=== PATIENT | male | born 1960 | race Caucasian/White ===

== ENCOUNTER 2017-02-06 20:56 | Emergency (ER) | payer OTHER ==
[2017-02-06 21:05] VITALS: PULSE 80; RESP 18; TEMP 98.4
[2017-02-06] MEDS ORDERED: methylPREDNISolone SOD SUCCI 125 MG/2 ML VIAL IM ONE (21:48)
--- NOTE | 2017-02-06 21:48 | ED ---
General Adult HPI - General Chief complaint: Headache Stated complaint: Headache x3 days Time Seen by Provider: 02/06/17 21:25 Source: patient Mode of arrival: ambulatory Limitations: no limitations - History of Present Illness Initial comments: 56-year-old male patient sent to emergency department today for evaluation of pain to his left posterior scalp. Patient states that he has had this pain for the last 3 days. Patient states that he has bumps on the back of the left side of his head near the hairline. Patient states that the pain is radiating up into the left side of his head near his ear. He states he did initially have some itching to the area. The patient states that he did take some Benadryl and ibuprofen at onset of symptoms which did improve the pain. Patient states this did help his symptoms somewhat. Patient states he did also take ibuprofen for this which improved symptoms as well. The patient states that it seemed to be getting a little worse today so came in for evaluation. Patient was concerned that he was possibly bit by an insect. Patient denies any recent fever, chills , shortness breath, chest pain, abdominal pain, nausea, vomiting, diarrhea, constipation, back pain, numbness, tingling, weakness, hematuria, headache, visual changes, or any other complaints. - Related Data Home Medications Medication Instructions Recorded Confirmed Ibuprofen [Advil] 600 mg PO Q6H PRN 02/06/17 02/06/17 Moexipril HCl [Univasc] 15 mg PO BID 02/06/17 02/06/17 Pravastatin Sodium [Pravachol] 10 mg PO HS 02/06/17 02/06/17 amLODIPine [Norvasc] 5 mg PO DAILY 02/06/17 02/06/17 Previous Rx's Medication Instructions Recorded Cephalexin [Keflex] 500 mg PO Q8HR #21 cap 02/06/17 predniSONE 60 mg PO DAILY #15 tab 02/06/17 Allergies Allergy/AdvReac Type Severity Reaction Status Date / Time No Known Allergies Allergy Verified 02/06/17 21:30 Review of Systems ROS Statement: Those systems with pertinent positive or pertinent negative responses have been documented in the HPI. ROS Other: All systems not noted in ROS Statement are negative. Past Medical History Past Medical History: Hypertension History of Any Multi-Drug Resistant Organisms: None Reported Past Surgical History: Hernia Repair Past Psychological History: No Psychological Hx Reported Smoking Status: Never smoker Past Alcohol Use History: Occasional Past Drug Use History: None Reported General Exam Limitations: no limitations General appearance: alert, in no apparent distress Head exam: Present: atraumatic, normocephalic. Absent: normal inspection (Left posterior scalp near the occipital region exhibits 3 separate lesions that appear to be bug bites. Lesions are circular, erythematous, and warm to touch. Area is swollen. Lesions are nonvesicular, non-purpuric, and not draining.) Eye exam: Present: normal appearance, PERRL, EOMI. Absent: scleral icterus, conjunctival injection, periorbital swelling ENT exam: Present: normal exam, mucous membranes moist Neck exam: Present: normal inspection. Absent: tenderness, meningismus, lymphadenopathy Respiratory exam: Present: normal lung sounds bilaterally. Absent: respiratory distress, wheezes, rales, rhonchi, stridor Cardiovascular Exam: Present: regular rate, normal rhythm, normal heart sounds. Absent: systolic murmur, diastolic murmur, rubs, gallop, clicks Back exam: Present: normal inspection Neurological exam: Present: alert, oriented X3, CN II-XII intact Psychiatric exam: Present: normal affect, normal mood Skin exam: Present: warm, dry, intact, normal color. Absent: rash Course Vital Signs 02/06/17 02/06/17 21:01 22:00 Temperature 98.4 F Pulse Rate 80 Respiratory 18 Rate Blood Pressure 166/80 137/60 O2 Sat by Pulse 96 Oximetry Medical Decision Making - Medical Decision Making 56-year-old male patient presented for evaluation of pain to his left scalp. Physical exam did reveal 3 separate areas that appear to be bug bites. Patient will be given a short course of steroids as well as instructed to take ibuprofen for inflammatory relief, and Benadryl for itching. Did instruct him that he could take Claritin or Zyrtec if he does not want to have the side effects from Benadryl. Patient was also given a prescription for Keflex should his symptoms not improve over the next 2-3 days. He is instructed to follow-up with his primary care physician for recheck in 1-2 days. He is instructed to return here immediately for any new, worsening, or concerning symptoms. Patient verbalizes understanding and agrees with this plan. Disposition Clinical Impression: Insect bite Disposition: HOME SELF-CARE Condition: Good Instructions: Insect Bite or Sting (ED) Additional Instructions: Cool compresses to the painful area. You can apply topical hydrocortisone cream to the area as well. Complete steroid prescription in full. Start antibiotics in 2-3 days if symptoms persist. Follow-up for recheck with her primary care physician in one to 2 days. Return here immediately for any new, worsening, or concerning symptoms. Prescriptions: Cephalexin [Keflex] 500 mg PO Q8HR #21 cap predniSONE 60 mg PO DAILY #15 tab Referrals: Rigo Adames Jr, [Primary Care Provider] - 1-2 days Time of Disposition: 21:47
[2017-02-06 22:02] VITALS: BP 137/60
== END 2017-02-06 22:00 | disposition home or self-care (01) ==
LOC: EC 20:56
DX: S00.06XA Insect bite (nonvenomous) of scalp, initial encounter (principal); I10 Essential (primary) hypertension; Z79.899 Other long term (current) drug therapy; W57.XXXA Bitten or stung by nonvenomous insect and other nonvenomous arthropods, initial encounter
CPT/HCPCS: 99283; 96372; J2930

== ENCOUNTER → 2017-08-14 | Outpatient (CLI) | payer OTHER ==
--- NOTE | 2017-08-14 16:36 | CONS ---
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 HISTORY OF PRESENT ILLNESS SLEEP WAKE EVALUATION: SLEEP SCHEDULE: Patient usual sleep schedule from 10 p.m. to 4:15 am working days and from 11:00 p.m. to 7 a.m. on days off. FALLING ASLEEP: No problem with falling asleep. He has TV set in bedroom. DURING SLEEP: During the sleep he snores, wakes up from sleep two times, once with nocturia. Usually sleeps on the back or side position. DURING THE DAY/SLEEP WAKE EVALUATION: No history of hypnagogic hallucinations, sleep paralysis or cataplexy. [place] Sleepiness Scale is 3. He does not take any naps during the day. PAST MEDICAL HISTORY: Positive for hypertension. PAST SURGICAL HISTORY: Hernia repair about 10 years ago. SOCIAL HISTORY: Negative for smoking. Alcohol consumption occasional. MEDICATIONS: 1. Amlodipine. 2. . REVIEW OF SYSTEMS: Sometimes awakenings from sleep. Sometimes has mild swelling of the legs. FAMILY HISTORY: Family history of hypertension. PHYSICAL EXAM: A gentleman without distress, BP 165/79, HR 89, RR 16, height 5 feet 8-1/2 inches, weight 246.2, BMI 36.8. Neck 18-1/2 inches in circumference. Temperature 98.2, oxygen saturation on room air 94%. Oropharynx low position of soft palate. Slight restriction of nasal breathing. ABDOMEN: Obese. Extremities show very minimal up to 1+ ankle edema. Neck Supple, no JVD. Thyroid is not palpable. LUNGS Clear to percussion and to auscultation. Good air exchange. No wheezing or rhonchi. HEART S1, S2 regular. No murmurs, gallops, or rubs. ABDOMEN: Obese. Soft and nontender. Bowel sounds are present. No organomegaly appreciated. CAR BRACER Awake, alert, and oriented X3. Cranial nerves 2 to 7 intact. There is no fasciculation or atrophy. noted. No focal deficits observed. IMPRESSION: 1. Snoring extremely low position of soft palate. Some awakenings from sleep with nocturia, wide neck, obstructive sleep apnea-hypopnea syndrome. 2. Obesity BMI 36.8. 3. Hypertension. 4. Status post hernia repair. 5. Very minimal ankle swelling. PLAN: 1. Polysomnography for evaluation of patient's breathing during sleep. 2. CPAP/BiPAP titration if sleep study confirms obstructive sleep apnea-hypopnea syndrome. 3. Preferable position during sleep on the side. 4. No driving if patient feels any sleepiness. Patient is aware of civil and criminal liability for unsafe driving. 5. I will see patient for follow up visit to explain results of testing and following plan. Thank you very much for referring this patient for evaluation. Sincerely, De Gottlieb MD, PhD, FAASM Diplomat of [place] [employer] [place] [employer] Lead of [facility] MMODL / IJN: [id number] /
== END | disposition home or self-care (01) ==
LOC: SLEEP 14:36
PROVIDERS: ATTEND Internal Medicine
DX: G47.33 Obstructive sleep apnea (adult) (pediatric) (principal); E66.9 Obesity, unspecified; I10 Essential (primary) hypertension; Z68.36 Body mass index [BMI] 36.0-36.9, adult; Z98.890 Other specified postprocedural states; Z79.899 Other long term (current) drug therapy
CPT/HCPCS: 99211

== ENCOUNTER → 2020-01-18 | Outpatient (CLI) | payer OTHER ==
--- NOTE | 2020-01-19 07:04 | US ---
EXAMINATION TYPE: US scrotum with doppler. Grayscale and color Doppler Duplex imaging performed of t he scrotum. DATE OF EXAM: 01/18/2020 COMPARISON: NONE CLINICAL HISTORY: N50.89 Other specified disorders of the male. rt testicle swelling EXAM MEASUREMENTS: TESTICLES: Right Testicle: 5.1 x 3.1 x 3.3 cm Left Testicle: 3.5 x 2.2 x 2.8 cm EPIDIDYMIS HEAD: Right Epididymis: 1.3 x 1.1 cm Left Epididymis: 1.3 x 0.7 cm , small 0.3 cm cyst Doppler performed to assess for testicular vascularity; good bilateral color flow and waveforms are s een. There is no evidence of testicular torsion. Presence of hydroceles: large hydrocele surrounding right testicle measures 6.4 x 3.0 x 6.1 cm, smal l fluid collection around left testicle. Presence of varicoceles: none appreciated. IMPRESSION: Large right-sided hydrocele with a tiny left-sided hydrocele noted.
== END | disposition home or self-care (01) ==
LOC: RADUSWWP 16:06
PROVIDERS: ATTEND Family Medicine
DX: N43.3 Hydrocele, unspecified (principal)
CPT/HCPCS: 76870; 93975

== ENCOUNTER 2021-12-23 18:26 | Emergency (ER) | payer OTHER ==
[2021-12-23 19:27] LABS: Basophils % (A) 0 %; Eosinophils # (A) 0.3 k/uL (0-0.7); Eosinophils % (A) 3 %; HCT 40.3 % (39.0-53.0); Lymphocytes # (A) 1.2 k/uL (1.0-4.8); Lymphocytes % (A) 14 %; MCH 29.8 pg (25.0-35.0); MCHC 32.1 g/dL (31.0-37.0); MCV 92.7 fL (80.0-100.0); Mean Platelet Volume 6.7; Monocytes # (A) 0.6 k/uL (0-1.0); Monocytes % (A) 8 %; Neutrophils # (A) 6.1 k/uL (1.3-7.7); Neutrophils % (A) 73 %; Platelet Count 294 k/uL (150-450); RBC 4.35 m/uL (4.30-5.90); RDW 13.8 % (11.5-15.5); WBC 8.3 k/uL (3.8-10.6)
--- NOTE | 2021-12-23 19:33 | XR ---
EXAMINATION TYPE: XR chest 2V DATE OF EXAM: 12/23/2021 7:19 PM COMPARISON: None TECHNIQUE: XR chest 2V Frontal and lateral views of the chest. CLINICAL INDICATION:Male, 60 years old with history of leg swelling; EF FINDINGS: Lungs/Pleura: Low lung volumes are present. There is no evidence of pleural effusion, focal consolida tion, or pneumothorax. Pulmonary vascularity: Unremarkable. Heart/mediastinum: Enlarged cardiomediastinal silhouette. Musculoskeletal: No acute osseous pathology. Scoliotic curvature of the visualized thoracolumbar spin e. IMPRESSION: No acute cardiopulmonary disease/process. Cardiomegaly.
[2021-12-23 19:39] LABS: ALT 40 U/L (4-49); AST 43 U/L (17-59); African American GFR (CKD) >90 (>60 ml/min/1.73 sqM); Albumin 4.1 g/dL (3.5-5.0); Alkaline Phosphatase 101 U/L (38-126); Anion Gap 8 mmol/L; Blood Urea Nitrogen 15 mg/dL (9-20); Calcium 8.6 mg/dL (8.4-10.2); Carbon Dioxide 23 mmol/L (22-30); Chloride 104 mmol/L (98-107); Glucose 87 mg/dL (74-99); Non-African American GFR(CKD) >90 (>60 ml/min/1.73 sqM); Potassium 3.8 mmol/L (3.5-5.1); Sodium 135 mmol/L (137-145); Total Bilirubin 0.3 mg/dL (0.2-1.3); Total Protein 6.7 g/dL (6.3-8.2)
--- NOTE | 2021-12-23 20:40 | US ---
EXAMINATION TYPE: US venous doppler duplex LE DATE OF EXAM: 12/23/2021 8:28 PM COMPARISON: NONE CLINICAL HISTORY: leg swelling. Edema SIDE PERFORMED: Bilateral TECHNIQUE: The lower extremity deep venous system is examined utilizing real time linear array sonog dax with graded compression, doppler sonography and color-flow sonography. VESSELS IMAGED: Common Femoral Vein Deep Femoral Vein Greater Saphenous Vein * Femoral Vein Popliteal Vein Small Saphenous Vein * Proximal Calf Veins (* superficial vessels) Right Leg: Negative for DVT Left Leg: Negative for DVT Bakers cyst left knee medially measuring 5.7 x 1.4 x 4.6 cm. Grayscale, color doppler, spectral doppler imaging performed of the deep veins of the lower extremiti es. There is normal flow, compressibility, vascular waveforms. IMPRESSION: * No evidence for deep venous thrombosis within both lower extremities. * Left Bergeron's cyst.
--- NOTE | 2021-12-23 20:58 | ED ---
General Adult HPI - General Chief complaint: Extremity Problem,Nontraumatic Stated complaint: leg & ankle swelling/redness Time Seen by Provider: 12/23/21 18:47 Source: patient, RN notes reviewed, old records reviewed Mode of arrival: ambulatory Limitations: no limitations - History of Present Illness Initial comments: Patient is a 60-year-old male with past medical history remarkable for hypertension he presents emergency Department complaining of bilateral ankle and feet swelling over the last week or so. Endorses occasional left calf pain. Swelling is symmetrical. This has happened before in his feet but not up into his legs. Denies any shortness of breath, fevers, chills, cough, chest pain. No other acute complaints at this time. Presents for further evaluation over concern for swelling. No history of heart failure. No history of blood clots. - Related Data Home Medications Medication Instructions Recorded Confirmed Ibuprofen [Advil] 600 mg PO Q6H PRN 02/06/17 02/06/17 Moexipril HCl [Univasc] 15 mg PO BID 02/06/17 02/06/17 Pravastatin Sodium [Pravachol] 10 mg PO HS 02/06/17 02/06/17 amLODIPine [Norvasc] 5 mg PO DAILY 02/06/17 02/06/17 Previous Rx's Medication Instructions Recorded Cephalexin [Keflex] 500 mg PO Q8HR #21 cap 02/06/17 predniSONE [Deltasone] 60 mg PO DAILY #15 tab 02/06/17 Cephalexin [Keflex] 500 mg PO Q12HR 5 Days #10 cap 12/23/21 Allergies Allergy/AdvReac Type Severity Reaction Status Date / Time No Known Allergies Allergy Verified 12/23/21 18:43 Review of Systems ROS Statement: Those systems with pertinent positive or pertinent negative responses have been documented in the HPI. Review of Systems: CONST: Denies fever EYES: Denies blurry vision ENT: Denies nasal congestion C/V: Denies Chest pain RESP: Denies shortness of breath GI: Denies abdominal pain : Denies dysuria SKIN: Denies rash. MSK: Endorses lower extremity swelling. NEURO: Denies headache ROS Other: All systems not noted in ROS Statement are negative. Past Medical History Past Medical History: Hypertension History of Any Multi-Drug Resistant Organisms: None Reported Past Surgical History: Hernia Repair Additional Past Surgical History / Comment(s): testicular surgery Past Psychological History: No Psychological Hx Reported Smoking Status: Never smoker Past Alcohol Use History: Occasional Past Drug Use History: None Reported General Exam - General Exam Comments Initial Comments: General: Appears in no acute distress. HEAD: Normal with no signs of head trauma. EYES: PERRLA, EOMI, conjunctiva normal, no discharge. ENT: Hearing grossly intact, normal oropharynx. RESPIRATORY: Clear breath sounds bilaterally. No wheezes, rales, or rhonchi. No hypoxia. No increased work of breathing. C/V: Regular rate and rhythm. S1 and S2 auscultated, 1+ pitting edema in the bilateral lower extremities up to the level of the mid calf bilaterally, peripheral pulses 2+ and intact throughout ABD: Abd is soft, nontender, nondistended EXT: Normal range of motion, no obvious deformity SKIN: There is some erythema located over the medial anterior aspect of the left leg. Small area. No swelling. No induration. No fluctuance. NEURO: Alert and oriented 4. No focal deficits. Limitations: no limitations Course Vital Signs 12/23/21 18:41 Temperature 98.9 F Pulse Rate 80 Respiratory 16 Rate Blood Pressure 152/86 O2 Sat by Pulse 94 L Oximetry Medical Decision Making - Medical Decision Making Based on the patient's presentation and physical exam, I do believe he is likely experiencing dependent edema but cannot rule out other etiologies. His no shortness of breath. We will obtain duplex of the bilateral lower extremities to evaluate for DVT, as well as basic laboratory studies and BNP, EKG, chest x- ray to evaluate for heart failure vital signs are within normal limits. Patient was in agreement this plan. EKG shows no signs of acute ischemia. Laboratory studies are remarkable for BNP within normal limits. No other abnormalities. Chest x-ray shows no acute cardio pulmonary process. Is duplex that showed no signs of DVT. Patient does have a left-sided Bergeron's cyst. I treated the patient on the results of his imaging and labs. I believe it is safer to be discharged home. Empirically he will be placed on Keflex for possible cellulitis of the left lower extremity although suspicion is low. Patient was in agreement this plan. We'll follow up with PCP outpatient. Strict return precautions were discussed. I will provide the patient with a prescription for Keflex. I instructed the patient to follow up with their PCP in the next 1-3 days. I explained that the patient should return to the emergency department if they experience any worsening symptoms. Strict return precautions were discussed with the patient. T he patient expressed understanding of these instructions. I answered all questions that the patient had. The patient was discharged home in good condition with their prescriptions and follow up information. - Lab Data Result diagrams: 12/23/21 19:05 12/23/21 19:05 Lab Results 12/23/21 12/23/21 12/23/21 Range/Units 19:05 19:05 19:05 WBC 8.3 (3.8-10.6) k/uL RBC 4.35 (4.30-5.90) m/uL Hgb 13.0 (13.0-17.5) gm/dL Hct 40.3 (39.0-53.0) % MCV 92.7 (80.0-100.0) fL MCH 29.8 (25.0-35.0) pg MCHC 32.1 (31.0-37.0) g/dL RDW 13.8 (11.5-15.5) % Plt Count 294 (150-450) k/uL MPV 6.7 Neutrophils % 73 % Lymphocytes % 14 % Monocytes % 8 % Eosinophils % 3 % Basophils % 0 % Neutrophils # 6.1 (1.3-7.7) k/uL Lymphocytes # 1.2 (1.0-4.8) k/uL Monocytes # 0.6 (0-1.0) k/uL Eosinophils # 0.3 (0-0.7) k/uL Basophils # 0.0 (0-0.2) k/uL Sodium 135 L (137-145) mmol/L Potassium 3.8 (3.5-5.1) mmol/L Chloride 104 (98-107) mmol/L Carbon Dioxide 23 (22-30) mmol/L Anion Gap 8 mmol/L BUN 15 (9-20) mg/dL Creatinine 0.75 (0.66-1.25) mg/dL Est GFR (CKD-EPI)AfAm >90 (>60 ml/min/1.73 sqM) Est GFR (CKD-EPI)NonAf >90 (>60 ml/min/1.73 sqM) Glucose 87 (74-99) mg/dL Calcium 8.6 (8.4-10.2) mg/dL Magnesium 2.0 (1.6-2.3) mg/dL Total Bilirubin 0.3 (0.2-1.3) mg/dL AST 43 (17-59) U/L ALT 40 (4-49) U/L Alkaline Phosphatase 101 (38-126) U/L NT-Pro-B Natriuret Pep 82 pg/mL Total Protein 6.7 (6.3-8.2) g/dL Albumin 4.1 (3.5-5.0) g/dL - EKG Data -: EKG Interpreted by Me EKG Comments: 12-lead Electrocardiogram Interpretation Note EKG was reviewed and interpreted by myself. 12-lead ECG performed at 1921 is interpreted by me as revealing normal sinus rhythm at a rate of 73 beats per minute. Cameron is normal. SC interval is 164 ms, QRS duration is 104 ms, QTc is 415 ms.. There were no ST or T wave abnormalities to suggest myocardial ischemia or injury. R wave progression across the precordium was satisfactory. By my interpretation this EKG is non-diagnostic for acute ischemia. Disposition Clinical Impression: Cellulitis, Leg edema, Bakers cyst Narrative: dependent edema Disposition: HOME SELF-CARE Condition: Good Additional Instructions: You have dependant edema, please elevate legs. monitor swelling. follow up with PCP outpatient. Prescriptions: Cephalexin [Keflex] 500 mg PO Q12HR 5 Days #10 cap Is patient prescribed a controlled substance at d/c from ED?: No Referrals: Rigo Adames Jr, [Primary Care Provider] - 1-2 days Time of Disposition: 20:50
[2021-12-23 21:53] VITALS: BP 148/80; PULSE 82; RESP 18; TEMP 98.8
== END 2021-12-23 21:53 | disposition home or self-care (01) ==
LOC: EC 18:26
DX: M71.22 Synovial cyst of popliteal space [Baker], left knee (principal); R60.0 Localized edema; L03.116 Cellulitis of left lower limb; I10 Essential (primary) hypertension; Z79.899 Other long term (current) drug therapy
CPT/HCPCS: 36415; 71046; 80053; 83735; 83880; 85025; 93005; 93970; 99284

== ENCOUNTER 2022-05-20 10:05 | Observation (INO) | payer OTHER ==
[2022-05-20 11:07] LABS: Basophils # (A) 0.1 k/uL (0-0.2); Basophils % (A) 0 %; Eosinophils # (A) 0.1 k/uL (0-0.7); Eosinophils % (A) 1 %; HCT 37.6 % (39.0-53.0); HGB 12.8 gm/dL (13.0-17.5); Lymphocytes # (A) 0.6 k/uL (1.0-4.8); Lymphocytes % (A) 5 %; MCH 29.1 pg (25.0-35.0); MCHC 33.9 g/dL (31.0-37.0); Mean Platelet Volume 6.8; Monocytes # (A) 0.9 k/uL (0-1.0); Monocytes % (A) 8 %; Neutrophils # (A) 9.2 k/uL (1.3-7.7); Neutrophils % (A) 83 %; Platelet Count 380 k/uL (150-450); RBC 4.38 m/uL (4.30-5.90); RDW 13.7 % (11.5-15.5); WBC 11.1 k/uL (3.8-10.6)
--- NOTE | 2022-05-20 11:09 | XR ---
EXAMINATION TYPE: XR chest 2V DATE OF EXAM: 05/20/2022 COMPARISON: 12/23/2021 TECHNIQUE: PA and lateral views submitted. HISTORY: Pain FINDINGS: The lungs are clear and there is no pneumothorax, pleural effusion, or focal pneumonia. Slightly co arsened interstitium. Limited inspiration. Heart size normal. Scoliotic curvature of the spine. Hyper trophic and degenerative changes seen. IMPRESSION: 1. Coarsened bilateral interstitial markings correlate for bronchitis or interstitial pneumonitis.
--- NOTE | 2022-05-20 11:14 | ED ---
Chest Pain HPI - General Chief Complaint: Chest Pain Stated Complaint: chest, arm & leg pain Time Seen by Provider: 05/20/22 10:19 Source: patient, RN notes reviewed Mode of arrival: ambulatory Limitations: no limitations - History of Present Illness Initial Comments: 61-year-old male with no significant past medical history presents to the emergency department with chest pain since 05/15/2022. He describes the pain as a dull constant ache that radiates to his back and bilateral shoulders. He notes he also had a headache and chills with his symptoms. He has tried taking Tylenol and Motrin for his symptoms with mild relief. e notes that nothing provokes the chest pain. He denies fever, sore throat, palpitations, shortness of breath, cough, abdominal pain, nausea, vomiting, diarrhea. Denies Recent sick contacts. He has been taking cephalexin for his knee drain for prophylaxis. - Related Data Home Medications Medication Instructions Recorded Confirmed Ibuprofen [Advil] 800 mg PO Q6H PRN 02/06/17 05/20/22 Moexipril HCl [Univasc] 15 mg PO BID 02/06/17 05/20/22 amLODIPine [Norvasc] 5 mg PO DAILY 02/06/17 05/20/22 Cephalexin [Keflex] 1,000 mg PO BID 05/20/22 05/20/22 Pravastatin Sodium [Pravachol] 20 mg PO HS 05/20/22 05/20/22 hydroCHLOROthiazide [Hydrodiuril] 25 mg PO DAILY 05/20/22 05/20/22 oxyCODONE HCL [OxyIR] 5 mg PO Q4H PRN 05/20/22 05/20/22 Allergies Allergy/AdvReac Type Severity Reaction Status Date / Time latex Allergy Blisters Verified 05/20/22 14:12 Review of Systems ROS Statement: Those systems with pertinent positive or pertinent negative responses have been documented in the HPI. ROS Other: All systems not noted in ROS Statement are negative. EKG Findings - EKG Comments: EKG Findings:: I interpreted the following: EKG performed at time:10:17. Rate 105, sinus tachycardia. CO interval 162 QRS duration 97, QT/QTC 325/386 Past Medical History Past Medical History: Hyperlipidemia, Hypertension History of Any Multi-Drug Resistant Organisms: None Reported Past Surgical History: Hernia Repair, Joint Replacement Additional Past Surgical History / Comment(s): testicular surgery Past Psychological History: No Psychological Hx Reported Smoking Status: Never smoker Past Alcohol Use History: Occasional Past Drug Use History: None Reported General Exam Limitations: no limitations General appearance: alert, in no apparent distress Head exam: Present: atraumatic, normocephalic, normal inspection Eye exam: Present: normal appearance, PERRL, EOMI. Absent: scleral icterus, conjunctival injection, periorbital swelling ENT exam: Present: normal exam, mucous membranes moist Neck exam: Present: normal inspection. Absent: tenderness, meningismus, lymphadenopathy Respiratory exam: Present: normal lung sounds bilaterally. Absent: respiratory distress, wheezes, rales, rhonchi, stridor Cardiovascular Exam: Present: normal rhythm, tachycardia, normal heart sounds. Absent: systolic murmur, diastolic murmur, rubs, gallop, clicks GI/Abdominal exam: Present: soft, normal bowel sounds. Absent: distended, tenderness, guarding, rebound, rigid Extremities exam: Present: normal inspection, full ROM, normal capillary refill. Absent: tenderness, pedal edema, joint swelling, calf tenderness Back exam: Present: normal inspection Neurological exam: Present: alert, oriented X3, CN II-XII intact Psychiatric exam: Present: normal affect, normal mood Skin exam: Present: warm, dry, intact, normal color. Absent: rash Course Vital Signs 05/20/22 05/20/22 05/20/22 10:15 11:52 14:59 Temperature 98.3 F Pulse Rate 111 H 85 92 Respiratory 18 18 18 Rate Blood Pressure 162/71 120/64 116/61 O2 Sat by Pulse 98 98 97 Oximetry - Reevaluation(s) Reevaluation #1: 05/20/22 12:48 Called with critical results: D-dimer 6.42. CT angiogram ordered. Reevaluation #2: 05/20/22 14:[address] Rodas. who agrees and accepts the patient for admission. Chest Pain MDM - MDM 61-year-old male presenting to the emergency department complaining of chest pain. She was evaluated physical exam essentially unremarkable. Lab work and imaging were performed. Labs remarkable for WBC 11.1, HGB 12.8, CMP unremar able, D-Dimer 6.42, COVID/Flu/RSV negative. I interpreted the following: CXR negative for acute pleural process. CT angiogram negative for PE/evidence of aneurysm. Based on mechanism of chief complaint, patients age, and elevated d- dimer it is my decision to admit the patient. Consult Dr. Rodas who agrees and accepts the patient for admission with consult to cardiology. I discussed the case with EVELINA Maxwell who agrees with plan for admission. Disposition Clinical Impression: Atypical chest pain Disposition: HOME SELF-CARE Condition: Fair Is patient prescribed a controlled substance at d/c from ED?: No
[2022-05-20 11:18] LABS: ALT 35 U/L (4-49); AST 36 U/L (17-59); African American GFR (CKD) >90 (>60 ml/min/1.73 sqM); Albumin 3.8 g/dL (3.5-5.0); Alkaline Phosphatase 136 U/L (38-126); Anion Gap 9 mmol/L; Blood Urea Nitrogen 12 mg/dL (9-20); Calcium 8.7 mg/dL (8.4-10.2); Carbon Dioxide 26 mmol/L (22-30); Chloride 100 mmol/L (98-107); Glucose 121 mg/dL (74-99); Magnesium 2.1 mg/dL (1.6-2.3); Non-African American GFR(CKD) >90 (>60 ml/min/1.73 sqM); Potassium 3.9 mmol/L (3.5-5.1); Sodium 135 mmol/L (137-145); Total Bilirubin 0.8 mg/dL (0.2-1.3); Total Protein 6.9 g/dL (6.3-8.2)
[2022-05-20 12:12] LABS: INR 0.9 (<1.2); Prothrombin Time 9.4 sec (9.0-12.0)
--- NOTE | 2022-05-20 13:26 | CT ---
CT CHEST FOR PULMONARY EMBOLISM. EXAMINATION TYPE: CT chest angio for PE DATE OF EXAM: 05/20/2022 INDICATION: Chest pain, radiating into the back. Concern for PE with elevated d-dimer and also concer n for dissection CT DLP: 1243.1 mGycm, Automated exposure control for dose reduction was used. CONTRAST: Patient injected with 100 mL of Isovue 370. COMPARISON: None TECHNIQUE: CT of the chest is performed on a spiral scan at 2 mm thick sections. Study is performed with intravenous contrast timed for evaluation for pulmonary embolism. This will limit additional po rtions of the evaluation. 3-D MIP images reconstructed by the technologist are reviewed on the compu ter in the coronal and sagittal planes. FINDINGS: No persistent filling defects are evident to suggest an acute pulmonary embolism. No aortic dissectio n is evident. No mediastinal or hilar adenopathy enlarged by CT criteria is evident. The ascending aorta diameter at the level of the main pulmonary artery is 3.5 cm. The main pulmonary artery diameter at the bifur cation is 3.0 cm. Lung windows are clear. Limited CT section through the upper abdomen. Scattered hepatic cysts are present. Scoliosis as through the thoracic spine. IMPRESSIONS: 1. No acute pulmonary embolism. No aortic dissection is evident.
[2022-05-20] MEDS ORDERED: KETOROLAC 15 MG/ML 1 ML VIAL IVP STA (14:50)
--- NOTE | 2022-05-20 15:41 | US ---
EXAMINATION TYPE: US venous doppler duplex UE DATE OF EXAM: 05/20/2022 COMPARISON: NONE CLINICAL HISTORY: arm pain. Pt states arm pain and chest pain SIDE PERFORMED: Bilateral Right Arm: Negative for DVT Left Arm: Negative for DVT Grayscale, color doppler, spectral doppler imaging performed of the deep veins of the bilateral upper extremities. There is normal flow, compressibility and vascular waveforms. IMPRESSION: No ultrasound evidence for acute deep or superficial venous thrombosis in either upper ex tremity.
[2022-05-20] MEDS ORDERED: NALOXONE 0.4 MG/ML 1 ML VIAL IV PRN (16:37)
[2022-05-20] MEDS ORDERED: SODIUM CHLORIDE 0.9% 1,000 ML IV SCH (16:45)
[2022-05-20] MEDS ORDERED: LORazepam 2 MG/ML INJ IV PRN (18:26)
[2022-05-20] MEDS ORDERED: THIAMINE 100 MG/ML 2 ML VIAL IM STA (18:26)
[2022-05-20] MEDS ORDERED: LORazepam 1 MG TAB PO PRN (18:26)
[2022-05-20] MEDS ORDERED: LORazepam 0.5 MG TAB PO PRN (18:26)
[2022-05-20] MEDS ORDERED: CYCLOBENZAPRINE 5 MG TAB PO PRN (18:29)
[2022-05-20] MEDS ORDERED: ACETAMINOPHEN TAB 325 MG TAB PO PRN (18:29)
[2022-05-20 18:33] LABS: Basophils # (A) 0.1 k/uL (0-0.2); Basophils % (A) 1 %; Eosinophils # (A) 0.1 k/uL (0-0.7); Eosinophils % (A) 1 %; HCT 39.5 % (39.0-53.0); HGB 12.9 gm/dL (13.0-17.5); Lymphocytes # (A) 0.8 k/uL (1.0-4.8); Lymphocytes % (A) 8 %; MCH 28.8 pg (25.0-35.0); MCHC 32.7 g/dL (31.0-37.0); MCV 87.9 fL (80.0-100.0); Mean Platelet Volume 7.4; Monocytes # (A) 0.5 k/uL (0-1.0); Monocytes % (A) 6 %; Neutrophils # (A) 7.9 k/uL (1.3-7.7); Neutrophils % (A) 83 %; Platelet Count 416 k/uL (150-450); RBC 4.49 m/uL (4.30-5.90); RDW 13.7 % (11.5-15.5); WBC 9.5 k/uL (3.8-10.6)
[2022-05-20] MEDS: methylPREDNISolone SOD SUCCI 125 MG/2 ML VIAL IV SCH (18:42)
[2022-05-20] MEDS: KETOROLAC 15 MG/ML 1 ML VIAL IVP SCH (18:42)
[2022-05-20] MEDS: PANTOPRAZOLE 40 MG TABLET PO SCH (18:43)
[2022-05-20 18:48] LABS: ALT 34 U/L (4-49); AST 33 U/L (17-59); African American GFR (CKD) >90 (>60 ml/min/1.73 sqM); Albumin 3.9 g/dL (3.5-5.0); Alkaline Phosphatase 141 U/L (38-126); Anion Gap 7 mmol/L; Blood Urea Nitrogen 11 mg/dL (9-20); Calcium 8.6 mg/dL (8.4-10.2); Carbon Dioxide 31 mmol/L (22-30); Chloride 99 mmol/L (98-107); Glucose 151 mg/dL (74-99); Non-African American GFR(CKD) >90 (>60 ml/min/1.73 sqM); Potassium 3.9 mmol/L (3.5-5.1); Sodium 137 mmol/L (137-145); Total Bilirubin 0.6 mg/dL (0.2-1.3); Total Protein 7.2 g/dL (6.3-8.2)
[2022-05-20] MEDS ORDERED: PRAVASTATIN SODIUM 20 MG TAB PO SCH (21:00)
[2022-05-21] MEDS: KETOROLAC 15 MG/ML 1 ML VIAL IVP SCH ×3 (00:34→12:53)
[2022-05-21] MEDS: methylPREDNISolone SOD SUCCI 125 MG/2 ML VIAL IV SCH ×3 (00:35→13:02)
[2022-05-21 03:09] LABS: Cocaine Screen,Urine Not Detected (NotDetected); Opiate Screen,Urine Not Detected (NotDetected); Phencyclidine Screen,Urine Not Detected (NotDetected); Urn Cannabinoid Scrn Not Detected (NotDetected)
[2022-05-21 03:10] LABS: Amphetamine Screen,Urine Not Detected (NotDetected); Barbiturate Screen,Urine Not Detected (NotDetected); Benzodiazepines Screen,Urine Not Detected (NotDetected); Methadone Screen, Urine Not Detected (NotDetected); Oxycodone Screen, Urine Not Detected (NotDetected); Tricyclic Antidepressant,Urine Not Detected (NotDetected)
[2022-05-21] MEDS: PANTOPRAZOLE 40 MG TABLET PO SCH (06:13)
[2022-05-21 08:58] VITALS: BP 145/78; PULSE 92; RESP 16; TEMP 97.7
[2022-05-21] MEDS ORDERED: MULTIVITAMINS, THERA 1 EACH TAB PO SCH (09:00)
[2022-05-21] MEDS ORDERED: amLODIPine 5 MG TAB PO SCH (09:00)
[2022-05-21] MEDS ORDERED: lisinopriL 20 MG TAB PO SCH (09:00)
[2022-05-21] MEDS ORDERED: THIAMINE 100 MG TAB PO SCH (09:00)
[2022-05-21] MEDS ORDERED: FOLIC ACID 1 MG TAB PO SCH (09:00)
[2022-05-21] MEDS ORDERED: hydroCHLOROthiazide 25 MG TAB PO SCH (09:00)
--- NOTE | 2022-05-21 11:15 | P.CRDCN ---
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 Marcelo medical history significant for hypertension, hyperlipidemia Patient complains of tightness in his chest, arms and shoulder blades into his neck. Pain also went down into his lower back. His been going on for 4-5 days and seemed to linger all weekend but is gone now. The pain was a dull ache. On Friday he could feel it when he took a deep breath. Patient is a nonsmoker. He denies family history of coronary artery disease. No rashes. Patient had left knee surgery March 05. EKG sinus tachycardia with no acute ST changes WBC 11.1, hemoglobin 12.8. D-dimer 6.42. Sodium 135, BUN 12 and creatinine 0.6. Troponin negative 3. Urine drug screen was negative. Influenza A, influenza B, RSV, Covid 19 not detected. Chest x-ray reveals coarse and bilateral interstitial markings correlate for bronchitis or interstitial pneumonitis CTA of the chest revealed no acute pulmonary embolism. No aortic dissection. Ultrasound of the bilateral upper extremities was negative for DVT Home cardiac medications: Norvasc 5 mg daily, hydrochlorothiazide 25 mg daily, univasc 15 mg twice daily, pravastatin 20 mg at bedtime Review Of Systems: At the time of my evaluation Constitutional: No fever, no chills. No weakness, fatigue or lethargy. EENT: No headache. No dizziness. Lungs: No shortness of breath, cough, no sputum production. No wheezing. Cardiovascular: No chest pain, no lower extremity edema. No palpitations. No paroxysmal nocturnal dyspnea. No orthopnea. No lightheadedness or dizziness. No syncopal episodes. Abdominal: No abdominal pain. No nausea, vomiting. No diarrhea. No constipation. No bloody or tarry stools.. No loss of appetite. Genitourinary: No dysuria.. No urinary retention. Musculoskeletal: No myalgias. No muscle weakness, no gait dysfunction, no frequent falls. No back pain. No neck pain. Integumentary: No wounds. No rash or pruritus. No unusual bruising. Neurologic: No aphasia. No facial droop. No change in mentation. No head injury. No headache. No paralysis. No paresthesia. Psychiatric: No depression. No anxiety. Endocrine: No abnormal blood sugars. Physical examination: Gen: This is a 61-year-old male. He is resting but appears to be comfortable VS: reviewed HEENT: Head is atraumatic, normocephalic. Pupils equal, round. Sclerae is anicteric. NECK: Supple. No JVD. LUNGS: Clear to auscultation. No wheezes or rhonchi. No intercostal retractions. HEART: Regular rate and rhythm. No murmur. ABDOMEN: Soft. No masses. No tenderness. EXTREMITIES: No pedal edema. No calf tenderness. NEUROLOGICAL: Patient is awake, alert and oriented x3. Assessment: Chest pain, acute coronary syndrome ruled out hypertension Hyperlipidemia Plan: Continue patient on home cardiac medications Obtain 2-D echocardiogram and Doppler study to assess cardiac structure and fun ction If echocardiogram is within normal limits, patient is cleared for discharge home and may undergo stress testing as an outpatient Thank you kindly for this consultation. Nurse practitioner note has been reviewed, I agree with documented findings and plan of care. Patient was seen and examined. Past Medical History Past Medical History: Hyperlipidemia, Hypertension History of Any Multi-Drug Resistant Organisms: None Reported Past Surgical History: Hernia Repair, Joint Replacement Additional Past Surgical History / Comment(s): testicular surgery Past Psychological History: No Psychological Hx Reported Smoking Status: Never smoker Past Alcohol Use History: Occasional Past Drug Use History: None Reported Medications and Allergies Home Medications Medication Instructions Recorded Confirmed Type Ibuprofen [Advil] 800 mg PO Q6H PRN 02/06/17 05/20/22 History Moexipril HCl [Univasc] 15 mg PO BID 02/06/17 05/20/22 History amLODIPine [Norvasc] 5 mg PO DAILY 02/06/17 05/20/22 History Cephalexin [Keflex] 1,000 mg PO BID 05/20/22 05/20/22 History Pravastatin Sodium [Pravachol] 20 mg PO HS 05/20/22 05/20/22 History hydroCHLOROthiazide [Hydrodiuril] 25 mg PO DAILY 05/20/22 05/20/22 History oxyCODONE HCL [OxyIR] 5 mg PO Q4H PRN 05/20/22 05/20/22 History Folic Acid 1 mg PO DAILY #1 tab 05/21/22 Rx Multivitamins, Thera [Multivitamin 1 each PO DAILY #1 tab 05/21/22 Rx (formulary)] Thiamine [Vitamin B-1] 100 mg PO DAILY #1 tab 05/21/22 Rx Allergies Allergy/AdvReac Type Severity Reaction Status Date / Time latex Allergy Blisters Verified 05/20/22 14:12 Physical Exam Vitals: Vital Signs Temp Pulse Pulse Resp BP BP Pulse Ox 05/21/22 02:00 97.9 F 83 17 101/58 95 05/20/22 18:00 98.3 F 107 H 16 134/77 97 05/20/22 14:59 92 18 116/61 97 05/20/22 11:52 98.3 F 85 18 120/64 98 05/20/22 10:15 111 H 18 162/71 98 Intake and Output 05/20/22 05/21/22 05/21/22 22:59 06:59 14:59 Other: # Voids 1 1 Weight 115.666 kg Results 05/20/22 18:15 05/20/22 18:15 Cardiac Enzymes 05/20/22 05/20/22 05/20/22 Range/Units 10:46 10:46 18:15 AST 36 33 (17-59) U/L Troponin I <0.012 (0.000-0.034) ng/mL 05/20/22 05/20/22 Range/Units 18:15 21:10 AST (17-59) U/L Troponin I <0.012 <0.012 (0.000-0.034) ng/mL Coagulation 05/20/22 Range/Units 10:46 PT 9.4 (9.0-12.0) sec APTT 25.0 (22.0-30.0) sec CBC 05/20/22 05/20/22 Range/Units 10:46 18:15 WBC 11.1 H 9.5 (3.8-10.6) k/uL RBC 4.38 4.49 (4.30-5.90) m/uL Hgb 12.8 L 12.9 L (13.0-17.5) gm/dL Hct 37.6 L 39.5 (39.0-53.0) % Plt Count 380 416 (150-450) k/uL Comprehensive Metabolic Panel 05/20/22 05/20/22 Range/Units 10:46 18:15 Sodium 135 L 137 (137-145) mmol/L Potassium 3.9 3.9 (3.5-5.1) mmol/L Chloride 100 99 (98-107) mmol/L Carbon Dioxide 26 31 H (22-30) mmol/L BUN 12 11 (9-20) mg/dL Creatinine 0.62 L 0.82 (0.66-1.25) mg/dL Glucose 121 H 151 H (74-99) mg/dL Calcium 8.7 8.6 (8.4-10.2) mg/dL AST 36 33 (17-59) U/L ALT 35 34 (4-49) U/L Alkaline Phosphatase 136 H 141 H (38-126) U/L Total Protein 6.9 7.2 (6.3-8.2) g/dL Albumin 3.8 3.9 (3.5-5.0) g/dL Current Medications Generic Name Dose Route Start Last Admin Trade Name Freq PRN Reason Stop Dose Admin Acetaminophen 650 mg 05/20/22 18:29 Acetaminophen Tab 325 Mg Tab PO Q6HR PRN Fever and/ or Pain Amlodipine Besylate 5 mg 05/21/22 09:00 Amlodipine 5 Mg Tab PO DAILY RAFAL Cyclobenzaprine HCl 5 mg 05/20/22 18:29 Cyclobenzaprine 5 Mg Tab PO TID PRN Muscle Spasm Folic Acid 1 mg 05/21/22 09:00 Folic Acid 1 Mg Tab PO DAILY RAFAL Hydrochlorothiazide 25 mg 05/21/22 09:00 Hydrochlorothiazide 25 Mg Tab PO DAILY RAFAL Sodium Chloride 1,000 mls @ 20 mls/hr 05/20/22 16:45 05/20/22 17:57 Saline 0.9% IV Not Given .Q24H RAFAL Ketorolac Tromethamine 15 mg 05/20/22 18:30 05/21/22 06:15 Ketorolac 15 Mg/Ml 1 Ml Vial IVP 05/23/22 18:29 Not Given Q6HR RAFAL Lisinopril 40 mg 05/21/22 09:00 Lisinopril 20 Mg Tab PO DAILY RAFAL Lorazepam 0.5 mg 05/20/22 18:26 Lorazepam 0.5 Mg Tab PO Q4HR PRN Ciwa 4 To 5 Lorazepam 1 mg 05/20/22 18:26 Lorazepam 1 Mg Tab PO Q1HR PRN Alcohol Withdrawal Lorazepam 2 mg 05/20/22 18:26 Lorazepam 2 Mg/Ml Inj IV Q6HR PRN Seizures Methylprednisolone Sodium Succinate 60 mg 05/20/22 18:30 05/21/22 06:13 Methylprednisolone Sod Succi 125 Mg/2 Ml Vial IV 60 mg Q6HR RAFAL Administration Multivitamins 1 each 05/21/22 09:00 Multivitamins, Thera 1 Each Tab PO DAILY RAFAL Naloxone HCl 0.2 mg 05/20/22 16:37 Naloxone 0.4 Mg/Ml 1 Ml Vial IV Q2M PRN Opioid Reversal Oxycodone HCl 5 mg 05/20/22 18:25 Oxycodone Hcl 5 Mg Tab PO Q4H PRN Pain Pantoprazole Sodium 40 mg 05/20/22 18:30 05/21/22 06:13 Pantoprazole 40 Mg Tablet PO 40 mg AC-BID RAFAL Administration Pravastatin Sodium 20 mg 05/20/22 21:00 05/20/22 21:08 Pravastatin Sodium 20 Mg Tab PO 20 mg HS RAFAL Administration Thiamine HCl 100 mg 05/21/22 09:00 Thiamine 100 Mg Tab PO DAILY RAFAL Intake and Output 05/20/22 05/21/22 05/21/22 22:59 06:59 14:59 Other: # Voids 1 1 Weight 115.666 kg 05/20/22 18:15 05/20/22 18:15
[2022-05-21 11:20] LABS: Basophils % (A) 0 %; Eosinophils % (A) 0 %; HCT 39.6 % (39.0-53.0); HGB 12.9 gm/dL (13.0-17.5); Lymphocytes # (A) 0.6 k/uL (1.0-4.8); Lymphocytes % (A) 6 %; MCH 28.7 pg (25.0-35.0); MCHC 32.7 g/dL (31.0-37.0); Monocytes # (A) 0.3 k/uL (0-1.0); Monocytes % (A) 3 %; Neutrophils # (A) 8.9 k/uL (1.3-7.7); Neutrophils % (A) 91 %; Platelet Count 496 k/uL (150-450); RDW 13.5 % (11.5-15.5); WBC 9.9 k/uL (3.8-10.6)
[2022-05-21 11:37] LABS: African American GFR (CKD) >90 (>60 ml/min/1.73 sqM); Anion Gap 10 mmol/L; Blood Urea Nitrogen 17 mg/dL (9-20); Calcium 8.9 mg/dL (8.4-10.2); Carbon Dioxide 27 mmol/L (22-30); Chloride 101 mmol/L (98-107); Glucose 158 mg/dL (74-99); Magnesium 2.6 mg/dL (1.6-2.3); Non-African American GFR(CKD) >90 (>60 ml/min/1.73 sqM); Potassium 4.1 mmol/L (3.5-5.1); Sodium 138 mmol/L (137-145)
--- NOTE | 2022-05-21 12:04 | CA ---
Transthoracic Echo Report Name: Kanu Andrews Age: 61 Gender: M : 1960 Exam Date: 05/21/2022 09:38 Exam Location: [facility] Ht (in): 70 Wt (lb): 255 Ordering Physician: Consuelo Mccall Attending/Referring Phys: [id number], Stefany Cobbler Upper Renetta Bernard RDCS Procedure CPT: Indications: LVF Cardiac Hx: Technical Quality: Technically difficult study Contrast 1: Lumason Total Dose (mL): 5 Contrast 2: Total Dose (mL): MEASUREMENTS (Male / Female) Normal Values 2D ECHO LV Diastolic Diameter PLAX 4.8 cm 4.2 - 5.9 / 3.9 - 5.3 cm LV Systolic Diameter PLAX 3.3 cm IVS Diastolic Thickness 1.3 cm 0.6 - 1.0 / 0.6 - 0.9 cm LVPW Diastolic Thickness 1.4 cm 0.6 - 1.0 / 0.6 - 0.9 cm LV Relative Wall Thickness 0.6 RV Internal Dim ED PLAX 4.0 cm LA Volume 33.3 cm??? 18 - 58 / 22 - 52 cm??? M-MODE Aortic Root Diameter MM 3.2 cm LA Systolic Diameter MM 3.8 cm LA Ao Ratio MM 1.2 AV Cusp Separation MM 2.5 cm DOPPLER AV Peak Velocity 150.7 cm/s AV Peak Gradient 9.1 mmHg LVOT Peak Velocity 106.4 cm/s LVOT Peak Gradient 4.5 mmHg MV Area PHT 4.3 cm??? Mitral E Point Velocity 77.3 cm/s Mitral A Point Velocity 95.0 cm/s Mitral E to A Ratio 0.8 MV Deceleration Time 174.5 ms MV E' Velocity 8.6 cm/s Mitral E to MV E' Ratio 8.9 TR Peak Velocity 206.9 cm/s TR Peak Gradient 17.1 mmHg Right Ventricular Systolic Press 22.1 mmHg FINDINGS Left Ventricle Mildly increased septal wall thickness. Low-normal left ventricular systolic function Right Ventricle Moderate right ventricular dilatation. Right ventricular systolic pressure within normal limits. Right Atrium Normal right atrial size. Left Atrium Normal left atrial size. Mitral Valve Structurally normal mitral valve. No mitral stenosis, regurgitation or prolapse. Aortic Valve No aortic valve stenosis or regurgitation. Tricuspid Valve Structurally normal tricuspid valve. Mild tricuspid regurgitation. Pulmonic Valve Trace pulmonic regurgitation. Pericardium No pericardial effusion. Aorta Normal size aortic root and proximal ascending aorta. CONCLUSIONS Low-normal left ventricular systolic function was EF around 50% Overall technically difficult study Previewed by: Dr. Martínez Nj MD (Electronically Signed) Final Date: 21 May 2022 12:03
--- NOTE | 2022-05-21 15:17 | P.HPIM ---
History of Present Illness H&P Date: 05/21/22 Chief Complaint: Chest pain History and Physical and Discharge Summary: This is a 61-year-old gentleman with past medical history of hyperlipidemia, hypertension, recent left knee surgery 03/05/2022, obesity,no prior history of CAD, presented to the ER with complaints of bilateral shoulder tightness, radiating up left neck, left chest pressure worsened with deep inspiration. Denies fever or chills cough congestion. Reports Friday at physical therapy he was placed on a new machine, doing multiple repetitions of pushing and pulling with his arms/ shoulders; reports injured rotators, right greater than left. Reports his left, normally compensates his right shoulder. They evening pain initiated with bilateral shoulder pain worsening by Friday night. Afebrile, mildly elevated WBC on admission- resolved. EKG refer a sinus tachy cardia, troponins negative 3. Chest x-ray reporting course and bilateral interstitial markings. D-dimer elevated at 6.42. Chest CTA reported lung windows clear, no persistent filling defects, negative PE, no aortic dissection, no mediastinal or hilar adenopathy. Limited CT section through the upper abdomen with Scattered hepatic cysts. Venous Doppler of upper extremities reported negative for DVT. Hemoglobin 12.8, platelets 380, sodium 135, BUN 12, creatinine 0.62, glucose 121, magnesium 2.1 alk phos 136, TSH 0.672. Cardiology consult in place. Review of Systems ROS Statement: Those systems with pertinent positive or pertinent negative responses have been documented in the HPI. ROS Other: All systems not noted in ROS Statement are negative. Past Medical History Past Medical History: Hyperlipidemia, Hypertension History of Any Multi-Drug Resistant Organisms: None Reported Past Surgical History: Hernia Repair, Joint Replacement Additional Past Surgical History / Comment(s): testicular surgery Past Psychological History: No Psychological Hx Reported Smoking Status: Never smoker Past Alcohol Use History: Occasional Past Drug Use History: None Reported Medications and Allergies Home Medications Medication Instructions Recorded Confirmed Type Ibuprofen [Advil] 800 mg PO Q6H PRN 02/06/17 05/20/22 History Moexipril HCl [Univasc] 15 mg PO BID 02/06/17 05/20/22 History amLODIPine [Norvasc] 5 mg PO DAILY 02/06/17 05/20/22 History Cephalexin [Keflex] 1,000 mg PO BID 05/20/22 05/20/22 History Pravastatin Sodium [Pravachol] 20 mg PO HS 05/20/22 05/20/22 History hydroCHLOROthiazide [Hydrodiuril] 25 mg PO DAILY 05/20/22 05/20/22 History oxyCODONE HCL [OxyIR] 5 mg PO Q4H PRN 05/20/22 05/20/22 History Cyclobenzaprine [Flexeril] 10 mg PO TID PRN #15 tab 05/21/22 Rx Famotidine [Pepcid] 20 mg PO BID #30 tablet 05/21/22 Rx Folic Acid 1 mg PO DAILY #1 tab 05/21/22 Rx Multivitamins, Thera [Multivitamin 1 each PO DAILY #1 tab 05/21/22 Rx (formulary)] Thiamine [Vitamin B-1] 100 mg PO DAILY #1 tab 05/21/22 Rx predniSONE 10 mg PO DIRECTED #30 tab 05/21/22 Rx Allergies Allergy/AdvReac Type Severity Reaction Status Date / Time latex Allergy Blisters Verified 05/20/22 14:12 Physical Exam Vitals: Vital Signs Temp Pulse Pulse Resp BP BP BP 05/21/22 07:00 97.7 F 92 16 145/78 05/21/22 02:00 97.9 F 83 17 101/58 05/20/22 18:00 98.3 F 107 H 16 134/77 05/20/22 14:59 92 18 116/61 Pulse Ox 05/21/22 07:00 93 L 05/21/22 02:00 95 05/20/22 18:00 97 05/20/22 14:59 97 Intake and Output 05/20/22 05/21/22 05/21/22 22:59 06:59 14:59 Other: # Voids 1 1 Weight 115.666 kg PHYSICAL EXAM: VITAL SIGNS: [As above] GENERAL: Sitting up at side of bed, no acute distress HEENT: Conjunctivae normal. eyes normal. NECK: Supple, No JVD. No thyroid enlargement. No LNs CARDIOVASCULAR: S1, S2 regular. No murmur RESPIRATION: Unlabored, Breath sounds diminished in the bases. No rhonchi or crackles. No bronchial breathing. ABDOMEN: Soft, nontender . No guarding. no masses palpable. No ascites, No hepatosplenomegaly.Bowel sounds heard. LEGS: No edema. no swelling PSYCHIATRY: Alert and oriented X3, mood and affect normal. NERVOUS SYSTEM: Cranial N 2-12 grossly normal. Moves all 4 limbs. Diffuse weakness No focal deficits. Strength and sensation grossly intact.. Skin: Warm and dry, no rash, left lower extremity dry scabs X2-(robotic knee OR) Results CBC & Chem 7: 05/21/22 10:04 05/21/22 10:04 Labs: Abnormal Lab Results - Last 24 Hours (Table) 05/20/22 05/20/22 05/21/22 Range/Units 18:15 18:15 10:04 Hgb 12.9 L 12.9 L (13.0-17.5) gm/dL Plt Count 496 H (150-450) k/uL Neutrophils # 7.9 H 8.9 H (1.3-7.7) k/uL Lymphocytes # 0.8 L 0.6 L (1.0-4.8) k/uL Carbon Dioxide 31 H (22-30) mmol/L Glucose 151 H (74-99) mg/dL Magnesium (1.6-2.3) mg/dL Alkaline Phosphatase 141 H (38-126) U/L 05/21/22 Range/Units 10:04 Hgb (13.0-17.5) gm/dL Plt Count (150-450) k/uL Neutrophils # (1.3-7.7) k/uL Lymphocytes # (1.0-4.8) k/uL Carbon Dioxide (22-30) mmol/L Glucose 158 H (74-99) mg/dL Magnesium 2.6 H (1.6-2.3) mg/dL Alkaline Phosphatase (38-126) U/L Thrombosis Risk Factor Assmnt - Choose All That Apply Each Risk Factor Represents 2 Points: Age 61-74 years Thrombosis Risk Factor Assessment Total Risk Factor Score: 2 Thrombosis Risk Factor Assessment Level: Low Risk Assessment and Plan Assessment: Chest pain, atypical, suspect muscleskeletal Obesity, BMI 36.6 Recent knee surgery March 05 Hypertension HyperLipidemia Plan: Continue on current medication regime ,monitoring and symptomatic treatment. Evaluated by cardiology, potential outpatient stress test 2-D echo ordered, pending. Patient will be discharged home pending echo, cardiology final DC recommendations and clearance, today in a stable condition with guarded prognosis. Patient will be discharged on Flexeril and prednisone taper as recommended per PCP. Discharge Medication List Ibuprofen [Advil] 800 mg PO Q6H PRN 02/06/17 [History] Moexipril HCl [Univasc] 15 mg PO BID 02/06/17 [History] amLODIPine [Norvasc] 5 mg PO DAILY 02/06/17 [History] Cephalexin [Keflex] 1,000 mg PO BID 05/20/22 [History] Pravastatin Sodium [Pravachol] 20 mg PO HS 05/20/22 [History] hydroCHLOROthiazide [Hydrodiuril] 25 mg PO DAILY 05/20/22 [History] oxyCODONE HCL [OxyIR] 5 mg PO Q4H PRN 05/20/22 [History] Cyclobenzaprine [Flexeril] 10 mg PO TID PRN #15 tab 05/21/22 [Rx] Famotidine [Pepcid] 20 mg PO BID #30 tablet 05/21/22 [Rx] Folic Acid 1 mg PO DAILY #1 tab 05/21/22 [Rx] Multivitamins, Thera [Multivitamin (formulary)] 1 each PO DAILY #1 tab 05/21/22 [Rx] Thiamine [Vitamin B-1] 100 mg PO DAILY #1 tab 05/21/22 [Rx] predniSONE 10 mg PO DIRECTED #30 tab 05/21/22 [Rx] The impression and plan of care has been dictated as directed. : I performed a history and examination of this patient, discussed the same with the dictator. I agree with the dictator's note ,documented as a scribe. Any additional findings or plans will be noted.
== END 2022-05-21 14:05 | disposition home or self-care (01) ==
LOC: EC 10:05 → 6NMEDSUR 16:49
PROVIDERS: ADMIT Family Medicine; ATTEND Family Medicine
DX: R07.89 Other chest pain (principal); I10 Essential (primary) hypertension; E78.5 Hyperlipidemia, unspecified; E66.9 Obesity, unspecified; Z68.36 Body mass index [BMI] 36.0-36.9, adult; D72.829 Elevated white blood cell count, unspecified; R00.0 Tachycardia, unspecified; R79.89 Other specified abnormal findings of blood chemistry; M25.511 Pain in right shoulder; M25.512 Pain in left shoulder; K76.89 Other specified diseases of liver; Z20.822 Contact with and (suspected) exposure to COVID-19; Z79.899 Other long term (current) drug therapy; Z91.040 Latex allergy status; Z96.60 Presence of unspecified orthopedic joint implant; Z98.890 Other specified postprocedural states
CPT/HCPCS: 96376 ×2; 96372; 96375; 96374; 99285; 36415; 93005; 93306; 85379; 80053; 80048; 84443; 83735 ×2; 84484; 85025 ×2; 85610; 85730; 80306; 87636; 71046; 93970; 71275; G0378 ×2; J2930 ×2; J3411; J1885 ×2; Q9950; Q9967

== ENCOUNTER 2023-01-19 10:30 | Inpatient (IN) | payer OTHER ==
[2023-01-19] MEDS ORDERED: KETOROLAC 15 MG/ML 1 ML VIAL IVP STA (10:57)
--- NOTE | 2023-01-19 11:20 | ED ---
General Adult HPI - General Chief complaint: Chest Pain Stated complaint: Chest pain Time Seen by Provider: 01/19/23 10:35 Source: patient, RN notes reviewed, old records reviewed Mode of arrival: ambulatory Limitations: no limitations - History of Present Illness Initial comments: This is a 62-year-old male with a chief complaint of chest pain on the left side. Patient states his been there for about a week now. Patient states movement and deep breath makes it worse. Patient states she has similar episode back in May was in the hospital for at which point in time he saw his primary medical care doctor he diagnosed him with polymyalgia rheumatica. Patient states been on steroids ever since and every time the steroids get reduced he feels as though the symptoms come back. Patient denies any shortness of breath but does hurt to take a deep breath. Patient denies any recent fever chills or cough. Patient denies any abdominal pain patient's nausea vomiting diarrhea. Patient denies any injury or trauma patient denies any rashes. - Related Data Home Medications Medication Instructions Recorded Confirmed Ibuprofen [Advil] 800 mg PO Q6H PRN 02/06/17 05/20/22 Moexipril HCl [Univasc] 15 mg PO BID 02/06/17 05/20/22 amLODIPine [Norvasc] 5 mg PO DAILY 02/06/17 05/20/22 Cephalexin [Keflex] 1,000 mg PO BID 05/20/22 05/20/22 Pravastatin Sodium [Pravachol] 20 mg PO HS 05/20/22 05/20/22 hydroCHLOROthiazide [Hydrodiuril] 25 mg PO DAILY 05/20/22 05/20/22 oxyCODONE HCL [OxyIR] 5 mg PO Q4H PRN 05/20/22 05/20/22 Previous Rx's Medication Instructions Recorded Cyclobenzaprine [Flexeril] 10 mg PO TID PRN #15 tab 05/21/22 Famotidine [Pepcid] 20 mg PO BID #30 tablet 05/21/22 Folic Acid 1 mg PO DAILY #1 tab 05/21/22 Multivitamins, Thera [Multivitamin 1 each PO DAILY #1 tab 05/21/22 (formulary)] Thiamine [Vitamin B-1] 100 mg PO DAILY #1 tab 05/21/22 predniSONE 10 mg PO DIRECTED #30 tab 05/21/22 Allergies Allergy/AdvReac Type Severity Reaction Status Date / Time latex Allergy Blisters Verified 01/19/23 10:37 Review of Systems ROS Statement: Those systems with pertinent positive or pertinent negative responses have been documented in the HPI. ROS Other: All systems not noted in ROS Statement are negative. Past Medical History Past Medical History: Hyperlipidemia, Hypertension Additional Past Medical History / Comment(s): Polymyalgia rheumatica diagnosed in jun 2022 History of Any Multi-Drug Resistant Organisms: None Reported Past Surgical History: Hernia Repair, Joint Replacement Additional Past Surgical History / Comment(s): testicular surgery Past Psychological History: No Psychological Hx Reported Smoking Status: Never smoker Past Alcohol Use History: Occasional Past Drug Use History: None Reported General Exam - General Exam Comments Initial Comments: GENERAL: Patient is well-developed and well-nourished. Patient is nontoxic and well- hydrated and is in mild distress. ENT: Neck is soft and supple. No significant lymphadenopathy is noted. Oropharynx is clear. Moist mucous membranes. Neck has full range of motion without eliciting any pain. EYES: The sclera were anicteric and conjunctiva were pink and moist. Extraocular movements were intact and pupils were equal round and reactive to light. Eyelids were unremarkable. PULMONARY: Unlabored respirations. Good breath sounds bilaterally. No audible rales rhonchi or wheezing was noted. CARDIOVASCULAR: There is a regular rate and rhythm without any murmurs gallops or rubs. ABDOMEN: Soft and nontender with normal bowel sounds. SKIN: Skin is clear with no lesions or rashes and otherwise unremarkable. NEUROLOGIC: Patient is alert and oriented x3. Cranial nerves II through XII are grossly intact. Motor and sensory are also intact. Normal speech, volume and content. Symmetrical smile. MUSCULOSKELETAL: Normal extremities with adequate strength and full range of motion. No lower extremity swelling or edema. No calf tenderness. LYMPHATICS: No significant lymphadenopathy is noted PSYCHIATRIC: Normal psychiatric evaluation. Limitations: no limitations Course Vital Signs 01/19/23 01/19/23 01/19/23 10:31 10:53 12:39 Temperature 98 F 99.3 F Pulse Rate 48 L 84 85 Respiratory 18 18 18 Rate Blood Pressure 118/76 114/62 117/73 O2 Sat by Pulse 92 L 95 93 L Oximetry Medical Decision Making - Medical Decision Making EKG is interpreted by myself. EKG shows a sinus rhythm in trigeminy. Patient's rate is 91 bpm LA interval 237 110 QT interval 329 QTC is 378. Patient's EKG shows no ST segment elevation or depression. Was pt. sent in by a medical professional or institution ([facility] Rascon, [facility], urgent care, hospital, or assisted...) When possible be specific @ -No Did you speak to anyone other than the patient for history (EMS, parent, family, police, friend...)? What history was obtained from this source @ -No Did you review nursing and triage notes (agree or disagree)? Why? @ -I reviewed and agree with nursing and triage notes Were old charts reviewed (outside hosp., previous admission, EMS record, old EKG, old radiological studies, urgent care reports/EKG's, assisted records)? Report findings @ -I reviewed prior lab work and charts on this patient Differential Diagnosis (chest pain, altered mental status, abdominal pain women, abdominal pain men, vaginal bleeding, weakness, fever, dyspnea, syncope, headache, dizziness, GI bleed, back pain, seizure, CVA, palpatations, mental health, musculoskeletal)? @ -Differential Chest Pain: Stable Angina, Unstable Angina, STEMI, NSTEMI Aortic Dissection, Pneumothorax, Musculoskeletal, Esophageal Spasm GERD, Cholecystitis, Pancreatitis, Zoster, this is not meant to be an all-inclusive list. EKG interpreted by me (3pts min.). @ -As above X-rays interpreted by me (1pt min.). @ -Chest x-ray showed no acute abnormality CT interpreted by me (1pt min.). @ -CT of the chest showed no PE or dissection or infiltrate U/S interpreted by me (1pt. min.). @ -None done What testing was considered but not performed or refused? (CT, X-rays, U/S, labs)? Why? @ -None What meds were considered but not given or refused? Why? @ -None Did you discuss the management of the patient with other professionals (professionals i.e. SUKI Rascon, ENAMEL SHADER, lab, RT, psych nurse, social sciences chair, floating operator, teacher, special police officer, skilled nursing case manager)? Give summary @ -With Dr. Adames about the results of today's labs and radiological studies Was smoking cessation discussed for >3mins.? @ -No Was critical care preformed (if so, how long)? @ -No Were there social determinants of health that impacted care today? How? (Homelessness, low income, unemployed, alcoholism, drug addiction, transportation, low edu. Level, literacy, decrease access to med. care, residential, rehab)? @ -No Was there de-escalation of care discussed even if they declined (Discuss DNR or withdrawal of care, Hospice)? DNR status @ -No What co-morbidities impacted this encounter? (DM, HTN, Smoking, COPD, CAD, Cancer, CVA, ARF, Chemo, Hep., AIDS, mental health diagnosis, sleep apnea, morbid obesity)? @ -None Was patient admitted / discharged? Hospital course, mention meds given and route, prescriptions, significant lab abnormalities, going to OR and other pertinent info. @ -Patient's lab work showed some acute kidney failure. I spoke with Dr. Adames we are going to admit the patient I'm going to consult pulmonology and nephrology Undiagnosed new problem with uncertain prognosis? @ -No Drug Therapy requiring intensive monitoring for toxicity (Heparin, Nitro, Insulin, Cardizem)? @ -No Were any procedures done? @ -No Diagnosis/symptom? @ -Acute renal failure Acute, or Chronic, or Acute on Chronic? @ -Acute Uncomplicated (without systemic symptoms) or Complicated (systemic symptoms)? @ -Complicated Side effects of treatment? @ -No Exacerbation, Progression, or Severe Exacerbation? @ -No Poses a threat to life or bodily function? How? (Chest pain, [place], [place], pneumonia, PE, COPD, DKA, ARF, appy, cholecystitis, CVA, Diverticulitis, Homicidal, Suicidal, threat to staff... and all critical care pts) @ -Yes this can lead to electrolyte abnormalities and possibly Diagnosis/symptom? @ -Chest pain Acute, or Chronic, or Acute on Chronic? @ -Acute on chronic Uncomplicated (without systemic symptoms) or Complicated (systemic symptoms)? @ -Complicated Side effects of treatment? @ -none Exacerbation, Progression, or Severe Exacerbation] @ -no Poses a threat to life or bodily function? @ -no - Lab Data Result diagrams: 01/19/23 11:02 01/19/23 11:02 Lab Results 01/19/23 01/19/23 01/19/23 Range/Units 11:02 11:02 11:02 WBC 13.9 H (3.8-10.6) k/uL RBC 4.17 L (4.30-5.90) m/uL Hgb 12.0 L (13.0-17.5) gm/dL Hct 37.0 L (39.0-53.0) % MCV 88.8 (80.0-100.0) fL MCH 28.9 (25.0-35.0) pg MCHC 32.5 (31.0-37.0) g/dL RDW 16.4 H (11.5-15.5) % Plt Count 449 (150-450) k/uL MPV 7.0 Neutrophils % 87 % Lymphocytes % 4 % Monocytes % 8 % Eosinophils % 0 % Basophils % 0 % Neutrophils # 12.1 H (1.3-7.7) k/uL Lymphocytes # 0.6 L (1.0-4.8) k/uL Monocytes # 1.1 H (0-1.0) k/uL Eosinophils # 0.0 (0-0.7) k/uL Basophils # 0.1 (0-0.2) k/uL Anisocytosis Slight PT 9.5 (9.0-12.0) sec INR 0.9 (<1.2) APTT 23.5 (22.0-30.0) sec D-Dimer 6.98 H (<0.60) mg/L FEU Sodium 132 L (137-145) mmol/L Potassium 4.6 (3.5-5.1) mmol/L Chloride 97 L (98-107) mmol/L Carbon Dioxide 22 (22-30) mmol/L Anion Gap 13 mmol/L BUN 38 H (9-20) mg/dL Creatinine 2.82 H (0.66-1.25) mg/dL Est GFR (CKD-EPI)AfAm 26 (>60 ml/min/1.73 sqM) Est GFR (CKD-EPI)NonAf 23 (>60 ml/min/1.73 sqM) Glucose 165 H (74-99) mg/dL Calcium 8.6 (8.4-10.2) mg/dL Magnesium 2.2 (1.6-2.3) mg/dL Total Bilirubin 0.9 (0.2-1.3) mg/dL AST 35 (17-59) U/L ALT 55 H (4-49) U/L Alkaline Phosphatase 122 (38-126) U/L Troponin I (0.000-0.034) ng/mL C-Reactive Protein 17.4 H (<1.0) mg/dL Total Protein 6.8 (6.3-8.2) g/dL Albumin 3.6 (3.5-5.0) g/dL Lipase 60 (23-300) U/L 01/19/23 Range/Units 11:02 WBC (3.8-10.6) k/uL RBC (4.30-5.90) m/uL Hgb (13.0-17.5) gm/dL Hct (39.0-53.0) % MCV (80.0-100.0) fL MCH (25.0-35.0) pg MCHC (31.0-37.0) g/dL RDW (11.5-15.5) % Plt Count (150-450) k/uL MPV Neutrophils % % Lymphocytes % % Monocytes % % Eosinophils % % Basophils % % Neutrophils # (1.3-7.7) k/uL Lymphocytes # (1.0-4.8) k/uL Monocytes # (0-1.0) k/uL Eosinophils # (0-0.7) k/uL Basophils # (0-0.2) k/uL Anisocytosis PT (9.0-12.0) sec INR (<1.2) APTT (22.0-30.0) sec D-Dimer (<0.60) mg/L FEU Sodium (137-145) mmol/L Potassium (3.5-5.1) mmol/L Chloride (98-107) mmol/L Carbon Dioxide (22-30) mmol/L Anion Gap mmol/L BUN (9-20) mg/dL Creatinine (0.66-1.25) mg/dL Est GFR (CKD-EPI)AfAm (>60 ml/min/1.73 sqM) Est GFR (CKD-EPI)NonAf (>60 ml/min/1.73 sqM) Glucose (74-99) mg/dL Calcium (8.4-10.2) mg/dL Magnesium (1.6-2.3) mg/dL Total Bilirubin (0.2-1.3) mg/dL AST (17-59) U/L ALT (4-49) U/L Alkaline Phosphatase (38-126) U/L Troponin I <0.012 (0.000-0.034) ng/mL C-Reactive Protein (<1.0) mg/dL Total Protein (6.3-8.2) g/dL Albumin (3.5-5.0) g/dL Lipase (23-300) U/L Disposition Clinical Impression: Chest pain, Acute renal failure Disposition: ADMITTED IP TO THIS HOSP Referrals: Rigo Adames Jr, DO [Primary Care Provider] - 1-2 days Time of Disposition: 13:27
[2023-01-19 11:38] LABS: Anisocytosis Slight; Basophils # (A) 0.1 k/uL (0-0.2); Basophils % (A) 0 %; Eosinophils % (A) 0 %; Lymphocytes # (A) 0.6 k/uL (1.0-4.8); Lymphocytes % (A) 4 %; MCH 28.9 pg (25.0-35.0); MCHC 32.5 g/dL (31.0-37.0); MCV 88.8 fL (80.0-100.0); Monocytes # (A) 1.1 k/uL (0-1.0); Monocytes % (A) 8 %; Neutrophils # (A) 12.1 k/uL (1.3-7.7); Neutrophils % (A) 87 %; Platelet Count 449 k/uL (150-450); RBC 4.17 m/uL (4.30-5.90); RDW 16.4 % (11.5-15.5); WBC 13.9 k/uL (3.8-10.6)
[2023-01-19 11:56] LABS: ALT 55 U/L (4-49); AST 35 U/L (17-59); African American GFR (CKD) 26 (>60 ml/min/1.73 sqM); Albumin 3.6 g/dL (3.5-5.0); Alkaline Phosphatase 122 U/L (38-126); Anion Gap 13 mmol/L; Blood Urea Nitrogen 38 mg/dL (9-20); Calcium 8.6 mg/dL (8.4-10.2); Carbon Dioxide 22 mmol/L (22-30); Chloride 97 mmol/L (98-107); Glucose 165 mg/dL (74-99); Lipase 60 U/L (23-300); Magnesium 2.2 mg/dL (1.6-2.3); Non-African American GFR(CKD) 23 (>60 ml/min/1.73 sqM); Potassium 4.6 mmol/L (3.5-5.1); Sodium 132 mmol/L (137-145); Total Bilirubin 0.9 mg/dL (0.2-1.3); Total Protein 6.8 g/dL (6.3-8.2)
[2023-01-19 12:01] LABS: INR 0.9 (<1.2); Partial Thromboplastin Time 23.5 sec (22.0-30.0); Prothrombin Time 9.5 sec (9.0-12.0)
--- NOTE | 2023-01-19 12:03 | XR ---
EXAMINATION TYPE: XR chest 2V DATE OF EXAM: 01/19/2023 11:57 AM COMPARISON: Chest radiographs from 05/20/2022 TECHNIQUE: XR chest 2V Frontal and lateral views of the chest. CLINICAL INDICATION:Male, 62 years old with history of Chest Pain; FINDINGS: Lungs/Pleura: There is no evidence of pleural effusion, focal consolidation, or pneumothorax. Pulmonary vascularity: Unremarkable. Heart/mediastinum: Cardiomediastinal silhouette is unremarkable. Musculoskeletal: No acute osseous pathology. IMPRESSION: No acute cardiopulmonary disease/process.
[2023-01-19 12:22] LABS: C Reactive Protein 17.4 mg/dL (<1.0)
--- NOTE | 2023-01-19 12:38 | CT ---
EXAMINATION TYPE: CT chest angio for PE CT DLP: 1007.6 mGycm, Automated exposure control for dose reduction was used. DATE OF EXAM: 01/19/2023 12:30 PM COMPARISON: CTA chest 05/20/2022, chest radiograph 01/19/2023 CLINICAL INDICATION:Male, 62 years old with history of Chest pain, elevated d-dimer; pe TECHNIQUE/CONTRAST: CTA scan of the thorax is performed with IV Contrast, patient injected with 70 mL of Isovue 370, pulm onary embolism protocol. MIP images are created and reviewed. FINDINGS: Pulmonary Artery: There is no evidence for a filling defect within the pulmonary vasculature to sugge st acute pulmonary embolism. The pulmonary artery is of normal size. Lungs/Pleura: No evidence of focal consolidation, pleural effusion or pneumothorax. Minimal bilateral lower lobe subsegmental atelectasis. Airway: Large airways are patent. Heart: Heart is within normal limits for size.. Vasculature: No evidence of aortic aneurysm. No evidence for aortic dissection. Mediastinum: No evidence of adenopathy. Musculoskeletal: No acute osseous abnormalities. Remote left-sided rib fractures. Scoliotic curvature . Mild multilevel degenerative disc disease. Soft Tissues: Unremarkable. Lower neck: No significant findings. Upper Abdomen: Stable few hepatic cysts. IMPRESSION: No evidence of pulmonary embolism or aortic dissection.
[2023-01-19] MEDS ORDERED: NITROGLYCERIN SL TABS 0.4 MG TAB SUBLINGUAL PRN (13:27)
[2023-01-19 14:26] LABS: Appearance,Urine Cloudy (Clear); Bilirubin,Urine Negative (Negative); Blood,Urine Trace (Negative); Color,Urine Yellow; Glucose,Urine (UA) Negative (Negative); Ketones,Urine Negative (Negative); Leukocyte Esterase,Urine Negative (Negative); Mucus,Urine Rare /hpf; Nitrite,Urine Negative (Negative); PH, Urine 5.5 (5.0-8.0); Protein,Urine 1+ (Negative); RBC,Urine 4 /hpf (0-5); Specific Gravity,Urine 1.024 (1.001-1.035); Squamous Epithelial Cell,Urine <1 /hpf (0-4); Urobilinogen,Urine <2.0 mg/dL (<2.0); WBC,Urine 4 /hpf (0-5)
[2023-01-19] MEDS: SODIUM CHLORIDE 0.9% 1,000 ML IV SCH (16:10)
--- NOTE | 2023-01-19 17:38 | US ---
EXAMINATION TYPE: US kidneys/renal and bladder DATE OF EXAM: 01/19/2023 COMPARISON: NONE CLINICAL INDICATION: Male, 62 years old with history of cortney; EXAM MEASUREMENTS: Right Kidney: 10.8 x 5.6 x 6.4 cm Left Kidney: 11.6 x 5.5 x 6.9 cm Difficult and limited study due to patient body habitus Right Kidney: No hydronephrosis or masses seen Left Kidney: No hydronephrosis or masses seen Bladder: wnl Bilateral Jets seen: No IMPRESSION: No obstructive uropathy. Cortical medullary differentiation is maintained.
--- NOTE | 2023-01-20 02:38 | P.CNPUL ---
History of Present Illness Consult date: 01/20/23 Requesting physician: Zachary Lr Reason for consult: other (Chest pain) Chief complaint: Left-sided chest pain History of present illness: I am seeing this patient in consultation today 01/20/2023 in the emergency room for left-sided chest pain that seems to be pleuritic in nature. It is a 62-year-old white male with past medical history significant for hypertension and hyperlipidemia. Patient also states that he was recently diagnosed with Polymyalgia rheumatica by his primary care provider, Dr. Conner, about 6 months ago. Patient denies any pulmonary disease and is a never smoker. The patient has been experiencing intermittent left lateral chest pain. He's had an episode back in June and on . Patient states that this most recent episode started approximately 6 days ago. The chest pain is described as severe, sharp, "like being stabbed by a knife". He states that it occurs mostly on inspiration. The pain comes and goes, it is not currently bothering him. He was treated on outpatient basis with a prednisone burst taper, which initially helped, but the pain has returned as he was tapering off the steroids. Dr. Adames directed him to the ER yesterday morning. He denies any URIs, trauma. Denies any shortness of breath, cough, hemoptysis, fever. Patient is currently sitting up in bed, on room air, in no acute distress. The pain is not reproducible with manual manipulation of the area. Chest CTA was negative for pulmonary embolism, pneumothorax, and aortic dissection. There was some minimal bibasilar atelectasis. No acute cardiopulmonary process was identified. ACS has also been ruled out. Troponins less than 0.012. ECG on arrival showed normal sinus rhythm with frequent unifocal PVCs. No acute ischemic changes. CBC on arrival showed a WBC count of 13.9, hemoglobin 12, hematocrit 37, platelets 449. BMP on arrival showed a sodium 132, potassium 4.6, chloride 97, serum bicarbonate 22, BUN 38, creatinine 2.82, glucose 165. Patient does have a component of acute kidney injury. Denies any dysuria, frequency, urgency. Urinalysis was not particularly concerning for UTI. There was trace blood and 1+ protein. Renal ultrasound did not show any hydronephrosis or obstructive uropathy. No CVA tenderness. Patient states that he's been taking ibuprofen daily. Normal saline is infusing at 75 mL per hour. Patient is hemodynamically stable. Review of Systems REVIEW OF SYSTEMS: CONSTITUTIONAL: Denies any recent significant weight loss or weight gain. EYES: Denies change in vision. EARS, NOSE, MOUTH, THROAT: Denies headaches, denies sore throat. CARDIOVASCULAR: Denies radiating chest pain, palpitations or syncopal episodes. RESPIRATORY: Denies shortness of breath, cough, congestion or hemoptysis. Does report pleuritic-like chest pain as described in HPI GASTROINTESTINAL: Denies change in appetite, abdominal pain, nausea and vomiting, or diarrhea GENITOURINARY: Denies hematuria, denies infections. MUSKULOSKELETAL: Denies pain, denies swelling. INTEGUMENTARY: Denies rash, denies eczema. NEUROLOGICAL: Denies recent memory loss, no recent seizure activity. PSYCHIATRIC: Denies anxiety, denies depression. HEMATOLOGIC/LYMPHATIC: Denies anemia, denies enlarged lymph node Past Medical History Past Medical History: Hyperlipidemia, Hypertension Additional Past Medical History / Comment(s): Polymyalgia rheumatica diagnosed in jun 2022 History of Any Multi-Drug Resistant Organisms: None Reported Past Surgical History: Hernia Repair, Joint Replacement Additional Past Surgical History / Comment(s): testicular surgery Past Psychological History: No Psychological Hx Reported Smoking Status: Never smoker Past Alcohol Use History: Occasional Past Drug Use History: None Reported Medications and Allergies Home Medications Medication Instructions Recorded Confirmed Type Moexipril HCl [Univasc] 15 mg PO BID 02/06/17 01/19/23 History amLODIPine [Norvasc] 5 mg PO DAILY 02/06/17 01/19/23 History hydroCHLOROthiazide [Hydrodiuril] 25 mg PO DAILY 05/20/22 01/19/23 History Pravastatin Sodium [Pravachol] 20 mg PO DAILY 01/19/23 01/19/23 History methocarbamoL [Robaxin] 500 mg PO Q8H PRN 01/19/23 01/19/23 History predniSONE [Deltasone] 20 mg PO AC-[id number] 01/19/23 01/19/23 History Allergies Allergy/AdvReac Type Severity Reaction Status Date / Time latex Allergy Blisters Verified 01/19/23 14:42 Physical Exam Vitals: Vital Signs Temp Pulse Resp BP Pulse Ox 01/19/23 18:22 85 18 117/67 93 L 08/20/23 14:55 71 18 111/65 94 L 01/19/23 12:39 85 18 117/73 93 L 01/19/23 10:53 99.3 F 84 18 114/62 95 01/19/23 10:31 98 F 48 L 18 118/76 92 L Intake and Output 01/19/23 01/19/23 01/20/23 14:59 22:59 06:59 Other: Weight 131.542 kg GENERAL EXAM: Alert, 62-year-old obese male appearing stated age, comfortable in no apparent distress. HEAD: Normocephalic and atraumatic EYES: Normal reaction of pupils, equal size. NOSE: Clear with pink turbinates. THROAT: No erythema or exudates. NECK: No masses, no JVD. CHEST: No chest wall deformity. LUNGS: Equal air entry with no crackles, wheeze, rhonchi or dullness. On room air. No conversational dyspnea or accessory muscle use.. CVS: S1 and S2 normal with no audible murmur, regular rhythm. No extra heart sounds ABDOMEN: Obese abdomen, no hepatosplenomegaly, active bowel sounds, no guarding or rigidity. SPINE: No scoliosis or deformity SKIN: No rashes CENTRAL NERVOUS SYSTEM: No focal deficits, tone is normal in all 4 extremities. EXTREMITIES: There is no peripheral edema, clubbing, or cyanosis. Peripheral pulses are intact. Results - Laboratory Findings CBC and BMP: 01/19/23 11:02 01/20/23 07:36 PT/INR, D-dimer PT 9.5 sec (9.0-12.0) 01/19/23 11:02 INR 0.9 (<1.2) 01/19/23 11:02 D-Dimer 6.98 mg/L FEU (<0.60) H 01/19/23 11:02 Abnormal lab findings: Abnormal Labs 01/19/23 01/19/23 01/19/23 11:02 11:02 11:02 WBC 13.9 H RBC 4.17 L Hgb 12.0 L Hct 37.0 L RDW 16.4 H Neutrophils # 12.1 H Lymphocytes # 0.6 L Monocytes # 1.1 H D-Dimer 6.98 H Sodium 132 L Chloride 97 L BUN 38 H Creatinine 2.82 H Glucose 165 H ALT 55 H C-Reactive Protein 17.4 H Urine Protein Urine Blood Urine Mucus 01/19/23 01/19/23 11:02 13:30 WBC RBC Hgb Hct RDW Neutrophils # Lymphocytes # Monocytes # D-Dimer Sodium Chloride BUN Creatinine Glucose ALT C-Reactive Protein 17.8 H Urine Protein 1+ H Urine Blood Trace H Urine Mucus Rare H - Diagnostic Findings Chest x-ray: image reviewed CT scan - chest: image reviewed Assessment and Plan Assessment: Left lateral chest pain, likely pleurisy. Chest CTA showed no evidence of pulm onary embolism, pneumothorax, or aortic dissection. There was minimal bibasilar atelectasis, without any acute cardiopulmonary processes. ACS ruled out. Acute kidney injury, possibly related to NSAID use Leukocytosis, doubt infectious etiology Elevated d-dimer, pulmonary embolism ruled out Essential hypertension Hyperlipidemia Morbid obesity, with a BMI of 40.4 kg/m Plan: Patient's medications, labs, imaging reviewed On room air Acute life-threatening pulmonary etiology and ACS has been ruled out Patient denies any current chest pain Normal saline is infusing at 75 mL per hour Avoid nephrotoxins Check CRP, ESR, MARGARET Patient is hemodynamically stable We will continue to follow I have personally seen and examined the patient, performed the documentation and the assessment and plan as written. Number of minutes spent on the visit:20 This is a joint evaluation was done along with the nurse practitioner. This evaluation was done in more than 30 minutes. In summary, this patient presents with pain across his left chest radiating posteriorly. The workup has been negative. The patient was taken nonsteroidal anti-inflammatory medications on outpatient basis and the patient presented with acute kidney injury. At the same time, a workup was done regarding his chest pain including a CT angiogram of the chest that showed no evidence of any pulmonary embolism or dissection. The patient was sustained IV fluids. His renal function continues to improve. He'll be seen by cardiology. He has adequate pain control and is taking [place] for now. Is on room air oxygen with a pulse ox of 95%. Is hemodynamically stable. Previous echocardiogram from May 2022 showed a preserved LV function. No other complaints otherwise for now. The patient will be seen by various other consultants including nephrology regarding his acute kidney injury. He will need an outpatient follow-up regarding him having a sleep breathing disorder. The patient has a body mass index of 40 and he has typical features of obstructive sleep apnea. X-ray of the lumbosacral spine was also d one that showed moderate to severe hypertrophic and degenerative changes of the spine and suspected foraminal encroachment at the level of L5-S1. He has bilateral sacroiliitis. Time with Patient: Greater than 30
[2023-01-20] MEDS: SODIUM CHLORIDE 0.9% 1,000 ML IV SCH ×2 (05:34→18:19)
[2023-01-20 08:47] LABS: African American GFR (CKD) 62 (>60 ml/min/1.73 sqM); Blood Urea Nitrogen 39 mg/dL (9-20); Calcium 9.4 mg/dL (8.4-10.2); Carbon Dioxide 27 mmol/L (22-30); Glucose 106 mg/dL (74-99); Magnesium 2.8 mg/dL (1.6-2.3); Non-African American GFR(CKD) 54 (>60 ml/min/1.73 sqM)
[2023-01-20 08:52] LABS: Anion Gap 9 mmol/L; Chloride 101 mmol/L (98-107); Potassium 4.4 mmol/L (3.5-5.1); Sodium 137 mmol/L (137-145)
[2023-01-20] MEDS: ASPIRIN 325 MG TAB PO SCH (08:56)
[2023-01-20] MEDS ORDERED: CYCLOBENZAPRINE 5 MG TAB PO STA (09:25)
--- NOTE | 2023-01-20 12:19 | P.NPCON ---
History of Present Illness - Reason for Consult acute renal failure - History of Present Illness Reason for consultation: Acute kidney injury History of present illness: Patient is a 62-year-old male seen in consultation for acute kidney injury. Patient's creatinine May 2022 was near 0.75. Creatinine on admission was 2.82 and is improved to 1.39 today. Patient came to the hospital due to upper a bdominal pain going on for 2-3 days. Patient does admit to taking Motrin about 1 g daily. He was also on hydrochlorothiazide outpatient which is currently held. He also underwent CT angiogram on 01/19/2023 which showed no evidence of pulmonary medicine. Patient has history of polymyalgia rheumatica and is maintained on prednisone outpatient. Currently denies chest pain or shortness of breath. Has been voiding. No gross hematuria or dysuria. Kidney ultrasound on this admission showed no evidence of obstructive uropathy. Oral intake is fair. No history of diabetes. Denies history of coronary artery disease. Denies family history of renal disease. He is currently receiving IV fluids with normal saline running at 75 mL an hour. Vital signs are stable. General: No acute distress. HEENT: Head exam is unremarkable. LUNGS: No audible rhonchi or wheezes. HEART: Rate and Rhythm are regular. ABDOMEN: Nontender. EXTREMITITES: No edema. Past Medical History Past Medical History: Hyperlipidemia, Hypertension Additional Past Medical History / Comment(s): Polymyalgia rheumatica diagnosed in jun 2022 History of Any Multi-Drug Resistant Organisms: None Reported Past Surgical History: Hernia Repair, Joint Replacement Additional Past Surgical History / Comment(s): testicular surgery Past Psychological History: No Psychological Hx Reported Smoking Status: Never smoker Past Alcohol Use History: Occasional Past Drug Use History: None Reported Medications and Allergies Home Medications Medication Instructions Recorded Confirmed Type Moexipril HCl [Univasc] 15 mg PO BID 02/06/17 01/19/23 History amLODIPine [Norvasc] 5 mg PO DAILY 02/06/17 01/19/23 History hydroCHLOROthiazide [Hydrodiuril] 25 mg PO DAILY 05/20/22 01/19/23 History Pravastatin Sodium [Pravachol] 20 mg PO DAILY 01/19/23 01/19/23 History methocarbamoL [Robaxin] 500 mg PO Q8H PRN 08/20/23 08/20/23 History predniSONE [Deltasone] 20 mg PO AC-BRKFST 01/19/23 01/19/23 History Allergies Allergy/AdvReac Type Severity Reaction Status Date / Time latex Allergy Blisters Verified 01/19/23 14:42 Physical Exam Vitals: Vital Signs Temp Pulse Resp BP Pulse Ox 01/20/23 08:00 98.1 F 93 12 152/90 96 01/20/23 02:30 84 22 123/63 96 01/20/23 02:20 91 22 123/63 94 L 01/20/23 02:10 86 16 123/63 94 L 01/20/23 02:00 71 19 106/63 01/20/23 01:50 74 17 106/63 95 01/20/23 01:40 76 16 106/63 95 01/20/23 01:30 86 14 113/74 96 01/20/23 01:20 92 24 113/74 96 01/20/23 01:10 90 25 H 113/74 95 01/20/23 01:00 72 20 107/69 95 01/20/23 00:50 68 19 107/69 97 01/20/23 00:40 72 14 107/69 95 01/20/23 00:30 74 14 111/65 94 L 01/20/23 00:20 75 16 111/65 94 L 01/20/23 00:10 81 14 111/65 95 01/20/23 00:00 87 18 99/78 94 L 01/19/23 23:50 79 18 99/78 94 L 01/19/23 23:40 81 18 99/78 94 L 01/19/23 23:30 82 11 L 118/67 95 01/19/23 23:20 79 19 118/67 94 L 01/19/23 23:10 76 18 118/67 94 L 01/19/23 23:00 82 13 104/63 95 01/19/23 22:50 83 22 104/63 95 01/19/23 22:40 77 19 104/63 94 L 01/19/23 22:30 78 18 112/64 94 L 01/19/23 22:20 79 19 112/64 94 L 01/19/23 22:10 77 19 112/64 94 L 01/19/23 22:00 79 18 134/79 93 L 01/19/23 21:50 20 134/79 94 L 01/19/23 21:40 134/79 01/19/23 21:30 22 121/74 93 L 01/19/23 21:20 121/74 95 01/19/23 21:10 81 121/74 93 L 01/19/23 21:00 120/67 93 L 01/19/23 20:50 80 120/67 94 L 01/19/23 20:40 120/67 94 L 01/19/23 20:30 0 L 21 109/64 94 L 01/19/23 20:20 33 H 109/64 93 L 01/19/23 20:10 83 14 109/64 94 L 01/19/23 20:00 84 20 103/77 94 L 01/19/23 19:50 86 27 H 103/77 95 01/19/23 19:40 19 103/77 93 L 01/19/23 19:30 87 23 117/65 93 L 01/19/23 19:20 80 23 117/65 93 L 01/19/23 19:10 82 18 117/65 93 L 01/19/23 19:00 82 22 113/66 94 L 01/19/23 18:50 81 20 113/66 01/19/23 18:40 26 H 113/66 01/19/23 18:34 85 23 01/19/23 18:22 85 18 117/67 93 L 01/19/23 18:20 88 111/71 93 L 01/19/23 14:55 71 18 111/65 94 L 01/19/23 12:39 85 18 117/73 93 L Results - Lab Results Most recent lab results Calcium 9.4 mg/dL (8.4-10.2) 01/20/23 07:36 Magnesium 2.8 mg/dL (1.6-2.3) H 01/20/23 07:36 01/19/23 11:02 01/20/23 07:36 Assessment and Plan Plan: Assessment: 1. Acute kidney injury mostly prerenal secondary to NSAIDs and further wasn't with the use of diuretics. Creatinine 2.82 on admission and is 1.39 today. No evidence of hydronephrosis noted on kidney ultrasound. UA with 1+ protein and trace blood. MARGARET negative. 2. Benign hypertension. Stable. 3. Hyponatremia, hypovolemic further worsened with the use of thiazide diuretic. Improved. Plan: Maintain IV fluids. Repeat UA once RADHA resolves. Avoid nephrotoxins. Continue to monitor renal function and urine output. Continue to hold diuretics for now. Thank you for the consultation. I will continue to follow the patient with you during his hospital stay.
[2023-01-20] MEDS: HYDROcodone/APAP 5-325MG 1 EACH TAB PO PRN ×2 (12:49→22:32)
--- NOTE | 2023-01-20 13:58 | P.HPIM ---
History of Present Illness H&P Date: 01/20/23 Chief Complaint: chest pain this 62 y/o male is well know to the practice.He was dx with Polymyalgia rheumatica in july and has been on prednisone since. HE came to the er for left sided chest wall/LUQ pain. CTA negative for PE.. W/u shows acute kdieny failure. He states due to pain he has been taking ibuprofen 800mg bid-tid, along with prednisoen 20mg daily. Up till 10 days ago he was drinking multiple beers daily. Home meds include HCTZ for htn control as well currently feeling a little better with pain meds. His pain is also lower back. Vitals are stable, BP normal. Labs show GFR now 54 from 23 CRP elevated, ESR 102 Review of Systems All systems: negative Past Medical History Past Medical History: Hyperlipidemia, Hypertension Additional Past Medical History / Comment(s): Polymyalgia rheumatica diagnosed in jun 2022 History of Any Multi-Drug Resistant Organisms: None Reported Past Surgical History: Hernia Repair, Joint Replacement Additional Past Surgical History / Comment(s): testicular surgery Past Psychological History: No Psychological Hx Reported Smoking Status: Never smoker Past Alcohol Use History: Occasional Past Drug Use History: None Reported Medications and Allergies Home Medications Medication Instructions Recorded Confirmed Type Moexipril HCl [Univasc] 15 mg PO BID 02/06/17 01/19/23 History amLODIPine [Norvasc] 5 mg PO DAILY 02/06/17 01/19/23 History hydroCHLOROthiazide [Hydrodiuril] 25 mg PO DAILY 05/20/22 01/19/23 History Pravastatin Sodium [Pravachol] 20 mg PO DAILY 01/19/23 01/19/23 History methocarbamoL [Robaxin] 500 mg PO Q8H PRN 01/19/23 01/19/23 History predniSONE [Deltasone] 20 mg PO AC-BRKFST 01/19/23 01/19/23 History Allergies Allergy/AdvReac Type Severity Reaction Status Date / Time latex Allergy Blisters Verified 01/19/23 14:42 Physical Exam Vitals: Vital Signs Temp Pulse Resp BP Pulse Ox 01/20/23 12:00 98.2 F 91 15 122/73 96 01/20/23 08:00 98.1 F 93 12 152/90 96 01/20/23 02:30 84 22 123/63 96 01/20/23 02:20 91 22 123/63 94 L 01/20/23 02:10 86 16 123/63 94 L 01/20/23 02:00 71 19 106/63 01/20/23 01:50 74 17 106/63 95 01/20/23 01:40 76 16 106/63 95 01/20/23 01:30 86 14 113/74 96 01/20/23 01:20 92 24 113/74 96 01/20/23 01:10 90 25 H 113/74 95 01/20/23 01:00 72 20 107/69 95 01/20/23 00:50 68 19 107/69 97 01/20/23 00:40 72 14 107/69 95 01/20/23 00:30 74 14 111/65 94 L 01/20/23 00:20 75 16 111/65 94 L 01/20/23 00:10 81 14 111/65 95 01/20/23 00:00 87 18 99/78 94 L 01/19/23 23:50 79 18 99/78 94 L 01/19/23 23:40 81 18 99/78 94 L 01/19/23 23:30 82 11 L 118/67 95 01/19/23 23:20 79 19 118/67 94 L 01/19/23 23:10 76 18 118/67 94 L 01/19/23 23:00 82 13 104/63 95 01/19/23 22:50 83 22 104/63 95 01/19/23 22:40 77 19 104/63 94 L 01/19/23 22:30 78 18 112/64 94 L 01/19/23 22:20 79 19 112/64 94 L 01/19/23 22:10 77 19 112/64 94 L 01/19/23 22:00 79 18 134/79 93 L 01/19/23 21:50 20 134/79 94 L 01/19/23 21:40 134/79 01/19/23 21:30 22 121/74 93 L 01/19/23 21:20 121/74 95 01/19/23 21:10 81 121/74 93 L 01/19/23 21:00 120/67 93 L 01/19/23 20:50 80 120/67 94 L 01/19/23 20:40 120/67 94 L 01/19/23 20:30 0 L 21 109/64 94 L 01/19/23 20:20 33 H 109/64 93 L 01/19/23 20:10 83 14 109/64 94 L 01/19/23 20:00 84 20 103/77 94 L 01/19/23 19:50 86 27 H 103/77 95 01/19/23 19:40 19 103/77 93 L 01/19/23 19:30 87 23 117/65 93 L 01/19/23 19:20 80 23 117/65 93 L 01/19/23 19:10 82 18 117/65 93 L 01/19/23 19:00 82 22 113/66 94 L 01/19/23 18:50 81 20 113/66 01/19/23 18:40 26 H 113/66 01/19/23 18:34 85 23 01/19/23 18:22 85 18 117/67 93 L 01/19/23 18:20 88 111/71 93 L 01/19/23 14:55 71 18 111/65 94 L - Constitutional General appearance: obese - EENT Eyes: EOMI, PERRLA - Neck Neck: no lymphadenopathy, normal ROM Thyroid: bilateral: normal size - Respiratory Respiratory: bilateral: CTA - Cardiovascular Rhythm: regular Heart sounds: normal: S1, S2 Abnormal Heart Sounds: no systolic murmur - Gastrointestinal General gastrointestinal: normal bowel sounds - Neurologic Neurologic: CNII-XII intact - Psychiatric Psychiatric: A&O x's 3, appropriate affect Results CBC & Chem 7: 01/19/23 11:02 01/20/23 07:36 Labs: Abnormal Lab Results - Last 24 Hours (Table) 01/19/23 01/19/23 01/20/23 Range/Units 11:02 13:30 07:36 ESR (0-15) mm/hr BUN 39 H (9-20) mg/dL Creatinine 1.39 H (0.66-1.25) mg/dL Glucose 106 H (74-99) mg/dL Magnesium 2.8 H (1.6-2.3) mg/dL C-Reactive Protein 17.8 H (<1.0) mg/dL Urine Protein 1+ H (Negative) Urine Blood Trace H (Negative) Urine Mucus Rare H (None) /hpf 01/20/23 Range/Units 07:36 ESR 102 H (0-15) mm/hr BUN (9-20) mg/dL Creatinine (0.66-1.25) mg/dL Glucose (74-99) mg/dL Magnesium (1.6-2.3) mg/dL C-Reactive Protein (<1.0) mg/dL Urine Protein (Negative) Urine Blood (Negative) Urine Mucus (None) /hpf Chest x-ray: report reviewed CT scan - chest: report reviewed Thrombosis Risk Factor Assmnt - DVT/VTE Prophylaxis DVT/VTE Prophylaxis: Low risk, early ambulation encouraged Assessment and Plan (1) Polymyalgia rheumatica Current Visit: Yes Status: Acute Code(s): M35.3 - POLYMYALGIA RHEUMATICA SNOMED Code(s): 88711549 (2) Essential (primary) hypertension Current Visit: Yes Status: Acute Code(s): I10 - ESSENTIAL (PRIMARY) HYPERTENSION SNOMED Code(s): 99340569 (3) Mixed hyperlipidemia Current Visit: Yes Status: Acute Code(s): E78.2 - MIXED HYPERLIPIDEMIA SNOMED Code(s): 020590154 (4) Low back pain Current Visit: Yes Status: Acute Code(s): M54.50 - LOW BACK PAIN, UNSPECIFIED SNOMED Code(s): 432119676 (5) Acute renal failure Current Visit: Yes Status: Acute Code(s): N17.9 - ACUTE KIDNEY FAILURE, UNSPECIFIED SNOMED Code(s): 01067411 (6) Atypical chest pain Current Visit: No Status: Acute Code(s): R07.89 - OTHER CHEST PAIN SNOMED Code(s): 765525703 Plan: will check Ls/pine film, change wto solumedrol, add gi prophylaxis and carafate. Ravenel orered for pain. wait on Nephology and pulmonology consults will reevaluate i nthe next 24 hours
--- NOTE | 2023-01-20 14:33 | XR ---
EXAM TYPE: LUMBAR SPINE X RAY SERIES COMPARISON: NONE HISTORY: Pain TECHNIQUE: 3 views are submitted. FINDINGS: Alignment is anatomic. The pedicles are intact. The transverse processes are intact. There is curv ature the spine with multilevel hypertrophic and moderate to severe degenerative change. There sclero sis with bilateral SI joints compatible with arthropathy. Multilevel moderate to severe hypertrophic and degenerative disc disease with grade 1 anterior listhesis L4 on L5. Multilevel facet arthropathy. Suspect foraminal encroachment L5-S1. IMPRESSION: 1. Multilevel moderate to severe hypertrophic and degenerative disc disease suspected foraminal encro achment L5-S1. 2. Bilateral sacroiliitis.
[2023-01-20] MEDS: methylPREDNISolone SOD SUCCI 125 MG/2 ML VIAL IV SCH ×3 (15:18→22:32)
[2023-01-20 16:55] LABS: Chol/HDL Ratio 3.17 Ratio; LDL Cholesterol,Calculated 133.3 mg/dL (0.0-131.0); VLDL Calculation 18.62 mg/dL (5.00-40.00)
[2023-01-20] MEDS: PANTOPRAZOLE 40 MG TABLET PO SCH (17:24)
[2023-01-20] MEDS: SUCRALFATE 1 GM TAB PO SCH (17:24)
[2023-01-21 05:37] LABS: Glucose,Whole Blood 171 mg/dL (70-110)
[2023-01-21] MEDS: PANTOPRAZOLE 40 MG TABLET PO SCH ×2 (06:13→17:07)
[2023-01-21] MEDS: methylPREDNISolone SOD SUCCI 125 MG/2 ML VIAL IV SCH ×2 (06:13→11:56)
[2023-01-21] MEDS: SUCRALFATE 1 GM TAB PO SCH ×3 (06:13→17:07)
[2023-01-21] MEDS: SODIUM CHLORIDE 0.9% 1,000 ML IV SCH ×2 (06:28→11:57)
[2023-01-21] MEDS ORDERED: predniSONE 20 MG TAB PO SCH (07:30)
[2023-01-21] MEDS: ASPIRIN 325 MG TAB PO SCH (07:34)
[2023-01-21 08:09] LABS: African American GFR (CKD) >90 (>60 ml/min/1.73 sqM); Anion Gap 9 mmol/L; Blood Urea Nitrogen 26 mg/dL (9-20); Calcium 8.8 mg/dL (8.4-10.2); Carbon Dioxide 27 mmol/L (22-30); Chloride 103 mmol/L (98-107); Glucose 144 mg/dL (74-99); Magnesium 2.7 mg/dL (1.6-2.3); Non-African American GFR(CKD) >90 (>60 ml/min/1.73 sqM); Potassium 4.5 mmol/L (3.5-5.1); Sodium 139 mmol/L (137-145)
[2023-01-21 08:40] LABS: C Reactive Protein 14.9 mg/dL (<1.0)
[2023-01-21] MEDS ORDERED: amLODIPine 5 MG TAB PO SCH (09:00)
--- NOTE | 2023-01-21 12:00 | P.PN ---
Subjective Progress Note Date: 01/21/23 I am seeing this patient in consultation today 01/20/2023 in the emergency room for left-sided chest pain that seems to be pleuritic in nature. It is a 62-year-old white male with past medical history significant for hypertension and hyperlipidemia. Patient also states that he was recently diagnosed with Polymyalgia rheumatica by his primary care provider, Dr. Conner, about 6 months ago. Patient denies any pulmonary disease and is a never smoker. The patient has been experiencing intermittent left lateral chest pain. He's had an episode back in June and on . Patient states that this most recent episode started approximately 6 days ago. The chest pain is described as severe, sharp, "like being stabbed by a knife". He states that it occurs mostly on inspiration. The pain comes and goes, it is not currently bothering him. He was treated on outpatient basis with a prednisone burst taper, which initially helped, but the pain has returned as he was tapering off the steroids. Dr. Adames directed him to the ER yesterday morning. He denies any URIs, trauma. Denies any shortness of breath, cough, hemoptysis, fever. Patient is currently sitting up in bed, on room air, in no acute distress. The pain is not reproducible with manual manipulation of the area. Chest CTA was negative for pulmonary embolism, pneumothorax, and aortic dissection. There was some minimal bibasilar atelectasis. No acute cardiopulmonary process was identified. ACS has also been ruled out. Troponins less than 0.012. ECG on arrival showed normal sinus rhythm with frequent unifocal PVCs. No acute ischemic changes. CBC on arrival showed a WBC count of 13.9, hemoglobin 12, hematocrit 37, platelets 449. BMP on arrival showed a sodium 132, potassium 4.6, chloride 97, serum bicarbonate 22, BUN 38, creatinine 2.82, glucose 165. Patient does have a component of acute kidney injury. Denies any dysuria, frequency, urgency. Urinalysis was not particularly concerning for UTI. There was trace blood and 1+ protein. Renal ultrasound did not show any hydronephrosis or obstructive uropathy. No CVA tenderness. Patient states that he's been taking ibuprofen daily. Normal saline is infusing at 75 mL per hour. Patient is hemodynamically stable. On today's evaluation of 01/21/2023, the patient reports improvement in his back and chest pain. 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 He is currently on IV Solu-Medrol. Noted the patient was taken high-dose of prednisone of 20 mg on an outpatient basis. He is also on Walpole for pain control which is using on an as-needed basis. No other significant events otherwise. He remains on room air oxygen. As stated, he has typical features of sleep breathing disorder/obstructive sleep apnea. The sodium is at 139, BUN is at 26 with a creatinine of 0.8, he is not taking any form of nonsteroidal anti-limited medications the patient's creatinine is normalized. Objective - Vital Signs Vital signs: Vital Signs Temp 97.9 F 01/21/23 08:00 Pulse 89 01/21/23 08:00 Resp 18 01/21/23 08:00 BP 148/88 01/21/23 08:00 Pulse Ox 94 L 01/21/23 08:00 FiO2 Intake & Output 01/20/23 01/21/23 01/21/23 18:59 06:59 18:59 Intake Total 720 Output Total 400 200 Balance -400 520 Weight 131.542 kg Intake: Oral 720 Output: Urine 400 200 Other: Voiding Method Urinal - Exam GENERAL EXAM: Alert, 62-year-old obese male appearing stated age, comfortable in no apparent distress. HEAD: Normocephalic and atraumatic EYES: Normal reaction of pupils, equal size. NOSE: Clear with pink turbinates. THROAT: No erythema or exudates. NECK: No masses, no JVD. CHEST: No chest wall deformity. LUNGS: Equal air entry with no crackles, wheeze, rhonchi or dullness. On room air. No conversational dyspnea or accessory muscle use.. CVS: S1 and S2 normal with no audible murmur, regular rhythm. No extra heart sounds ABDOMEN: Obese abdomen, no hepatosplenomegaly, active bowel sounds, no guarding or rigidity. SPINE: No scoliosis or deformity SKIN: No rashes CENTRAL NERVOUS SYSTEM: No focal deficits, tone is normal in all 4 extremities. EXTREMITIES: There is no peripheral edema, clubbing, or cyanosis. Peripheral pulses are intact. - Labs CBC & Chem 7: 01/19/23 11:02 01/21/23 07:42 Labs: Abnormal Lab Results - Last 24 Hours (Table) 01/20/23 01/21/23 01/21/23 Range/Units 07:36 05:31 07:42 ESR 99 H (0-15) mm/hr BUN (9-20) mg/dL Glucose (74-99) mg/dL POC Glucose (mg/dL) 171 H (70-110) mg/dL Magnesium (1.6-2.3) mg/dL C-Reactive Protein (<1.0) mg/dL Cholesterol 222.00 H (0.00-200.00) mg/dL LDL Cholesterol, Calc 133.3 H (0.0-131.0) mg/dL HDL Cholesterol 70.10 H (40.00-60.00) mg/dL 01/21/23 Range/Units 07:42 ESR (0-15) mm/hr BUN 26 H (9-20) mg/dL Glucose 144 H (74-99) mg/dL POC Glucose (mg/dL) (70-110) mg/dL Magnesium 2.7 H (1.6-2.3) mg/dL C-Reactive Protein 14.9 H (<1.0) mg/dL Cholesterol (0.00-200.00) mg/dL LDL Cholesterol, Calc (0.0-131.0) mg/dL HDL Cholesterol (40.00-60.00) mg/dL Assessment and Plan Assessment: Left lateral chest pain, likely pleurisy. Chest CTA showed no evidence of pulmonary embolism, pneumothorax, or aortic dissection. There was minimal bibasilar atelectasis, without any acute cardiopulmonary processes. ACS ruled out. Acute kidney injury, possibly related to NSAID use Leukocytosis, doubt infectious etiology Elevated d-dimer, pulmonary embolism ruled out Essential hypertension Hyperlipidemia Morbid obesity, with a BMI of 40.4 kg/m Plan: The patient is essentially muscular skeletal/inflammatory in nature Continue IV Solu-Medrol Monitor sedimentation rate Continue Walpole for pain control Renal function is improved CT angiogram of the chest that showed no evidence of any pulmonary embolism or dissection. The patient was sustained IV fluids. His renal function continues to improve. He'll be seen by cardiology. He has adequate pain control and is taking Walpole for now. Is on room air oxygen with a pulse ox of 95%. Is hemodynamically stable. Previous echocardiogram from May 2022 showed a preserved LV function. No other complaints otherwise for now. The patient will be seen by various other consultants including nephrology regarding his acute kidney injury. He will need an outpatient follow-up regarding him having a sleep breathing disorder. The patient has a body mass index of 40 and he has typical features of obstructive sleep apnea. X-ray of the lumbosacral spine was also done that showed moderate to severe hypertrophic and degenerative changes of the spine and suspected foraminal encroachment at the level of L5-S1. He has bilateral sacroiliitis. We'll continue to follow
--- NOTE | 2023-01-21 12:06 | P.PN ---
Subjective Patient is seen in follow for acute kidney injury. GFR back to baseline. Oral intake is good. No vomiting or diarrhea. No active complaints. Vital signs are stable. General: The patient appeared well nourished and normally developed. HEENT: Head exam is unremarkable. LUNGS: No audible rhonchi or wheezes. HEART: Rate and Rhythm are regular. ABDOMEN: Nontender. EXTREMITITES: No edema. Objective - Vital Signs Vital signs: Vital Signs Temp 97.9 F 01/21/23 08:00 Pulse 89 01/21/23 08:00 Resp 18 01/21/23 08:00 BP 148/88 01/21/23 08:00 Pulse Ox 94 L 01/21/23 08:00 FiO2 Intake & Output 01/20/23 01/21/23 01/21/23 18:59 06:59 18:59 Intake Total 720 Output Total 400 200 Balance -400 520 Weight 131.542 kg Intake: Oral 720 Output: Urine 400 200 Other: Voiding Method Urinal - Labs CBC & Chem 7: 01/19/23 11:02 01/21/23 07:42 Labs: Abnormal Lab Results - Last 24 Hours (Table) 01/20/23 01/21/23 01/21/23 Range/Units 07:36 05:31 07:42 ESR 99 H (0-15) mm/hr BUN (9-20) mg/dL Glucose (74-99) mg/dL POC Glucose (mg/dL) 171 H (70-110) mg/dL Magnesium (1.6-2.3) mg/dL C-Reactive Protein (<1.0) mg/dL Cholesterol 222.00 H (0.00-200.00) mg/dL LDL Cholesterol, Calc 133.3 H (0.0-131.0) mg/dL HDL Cholesterol 70.10 H (40.00-60.00) mg/dL 01/21/23 Range/Units 07:42 ESR (0-15) mm/hr BUN 26 H (9-20) mg/dL Glucose 144 H (74-99) mg/dL POC Glucose (mg/dL) (70-110) mg/dL Magnesium 2.7 H (1.6-2.3) mg/dL C-Reactive Protein 14.9 H (<1.0) mg/dL Cholesterol (0.00-200.00) mg/dL LDL Cholesterol, Calc (0.0-131.0) mg/dL HDL Cholesterol (40.00-60.00) mg/dL Assessment and Plan Plan: Assessment: 1. Acute kidney injury mostly prerenal secondary to NSAIDs and further wasn't with the use of diuretics. Creatinine 2.82 on admission and is 0.84 today. No evidence of hydronephrosis noted on kidney ultrasound. UA with 1+ protein and trace blood. MARGARET negative. 2. Benign hypertension. Stable. 3. Hyponatremia, hypovolemic further worsened with the use of thiazide diuretic. Improved. Plan: Hep-Lock IV fluids. Repeat UA. Avoid nephrotoxins. Continue to monitor renal function and urine output. Continue to hold diuretics. Increase dose of amlodipine to 10 mg daily.
[2023-01-21 14:50] LABS: Appearance,Urine Clear (Clear); Bilirubin,Urine Negative (Negative); Blood,Urine Negative (Negative); Color,Urine Yellow; Glucose,Urine (UA) 4+ (Negative); Ketones,Urine Negative (Negative); Leukocyte Esterase,Urine Negative (Negative); Nitrite,Urine Negative (Negative); Protein,Urine Trace (Negative); Specific Gravity,Urine 1.023 (1.001-1.035); Urobilinogen,Urine <2.0 mg/dL (<2.0)
--- NOTE | 2023-01-21 15:25 | P.PN ---
Subjective Progress Note Date: 01/21/23 H&P Date: 01/20/23 Chief Complaint: chest pain this 62 y/o male is well know to the practice.He was dx with Polymyalgia rheumatica in july and has been on prednisone since. HE came to the er for left sided chest wall/LUQ pain. CTA negative for PE.. W/u shows acute kdieny failure. He states due to pain he has been taking ibuprofen 800mg bid-tid, along with prednisoen 20mg daily. Up till 10 days ago he was drinking multiple beers daily. Home meds include HCTZ for htn control as well currently feeling a little better with pain meds. His pain is also lower back. Vitals are stable, BP normal. Labs show GFR now 54 from CRP elevated, ESR 102 01/21/2023 maintained on [place], Flexeril, IV steroids. Reports back pain significantly improved . States it was initially worsened from spending the first night on the gurney in ER .Lumbar spine x-ray reported moderate to severe hypertrophic and degenerative changes of the spine and suspected foraminal encroachment at the level of L5-S1, bilateral sacroiliitis, reported per LS xray. Continues on Carafate and PPI .He reports no further left upper quadrant pain. Denies nausea vomiting or diarrhea. Reports he did have some "gout like pain "of his left bunion prior to admission-resolved, uric acid level pending. Denies chest pain, palpitations or shortness of breath. Maintaining O2 sats in the mid 90s on room air. Sodium and Renal function normalized with IV fluid hydration. Afebrile, elevated CRP and sed rate-both trending down ,recent WBC 13.9. Objective - Vital Signs Vital signs: Vital Signs Temp 98 F 01/21/23 12:00 Pulse 97 01/21/23 12:00 Resp 16 01/21/23 12:00 BP 121/74 01/21/23 12:00 Pulse Ox 94 L 01/21/23 12:00 FiO2 Intake & Output 01/20/23 01/21/23 01/21/23 18:59 06:59 18:59 Intake Total 720 Output Total 400 200 Balance -400 520 Weight 131.542 kg Intake: Oral 720 Output: Urine 400 200 Other: Voiding Method Urinal - Exam - Constitutional General appearance: obese - EENT Eyes: EOMI, PERRLA - Neck Neck: Supple, no JVD Thyroid: bilateral: normal size - Respiratory Respiratory: bilateral: CTA - Cardiovascular Rhythm: regular Heart sounds: normal: S1, S2 Abnormal Heart Sounds: no systolic murmur - Gastrointestinal General gastrointestinal: normal bowel sounds - Neurologic Neurologic: CNII-XII intact - Psychiatric Psychiatric: A&O x's 3, appropriate affect - Labs CBC & Chem 7: 01/19/23 11:02 01/21/23 07:42 Labs: Abnormal Lab Results - Last 24 Hours (Table) 01/20/23 01/21/23 01/21/23 Range/Units 07:36 05:31 07:42 ESR 99 H (0-15) mm/hr BUN (9-20) mg/dL Glucose (74-99) mg/dL POC Glucose (mg/dL) 171 H (70-110) mg/dL Magnesium (1.6-2.3) mg/dL C-Reactive Protein (<1.0) mg/dL Cholesterol 222.00 H (0.00-200.00) mg/dL LDL Cholesterol, Calc 133.3 H (0.0-131.0) mg/dL HDL Cholesterol 70.10 H (40.00-60.00) mg/dL 01/21/23 Range/Units 07:42 ESR (0-15) mm/hr BUN 26 H (9-20) mg/dL Glucose 144 H (74-99) mg/dL POC Glucose (mg/dL) (70-110) mg/dL Magnesium 2.7 H (1.6-2.3) mg/dL C-Reactive Protein 14.9 H (<1.0) mg/dL Cholesterol (0.00-200.00) mg/dL LDL Cholesterol, Calc (0.0-131.0) mg/dL HDL Cholesterol (40.00-60.00) mg/dL Assessment and Plan Assessment: Atypical chest pain, suspect muscloskeletal. Elevated sed rate., Workup in progress, Uric acid level pending, possibly acute gout Bibasilar atelectasis, minimal . Elevated d-dimer .Chest CTA reported negative for PE,pneumothorax, or aortic dissection Acute renal failure, secondary to NSAID use, resolved with IV fluid hydration , holding diuretics Hyponatremia, hypovolemic, improving Hypertension Hyperlipidemia Morbid obesity, BMI 40.4 Possible obstructive sleep apnea, outpatient sleep study History of polymyalgia rheumatica Moderate to severe hypertrophic and degenerative changes of the spine and suspected foraminal encroachment at the level of L5-S1, bilateral sacroiliitis, reported per LS xray. Potential outpatient MRI if worsening. Plan: Continue on current medication regime ,monitoring and symptomatic treat ment. IV steroids decreased. Elevated sed rate and CRP close monitoring with repeat levels ordered, uric acid level pending. Close monitoring of renal function Pain management. Increase ambulation as tolerated. Discharge planning in progress for possibly tomorrow pending continued improvement, final DC recommendations and clearance per consults. The impression and plan of care has been dictated as directed. : I performed a history and examination of this patient, discussed the same with the dictator. I agree with the dictator's note ,documented as a scribe. Any additional findings or plans will be noted.
[2023-01-21] MEDS: methylPREDNISolone SOD SUCCI 40 MG/ML 1 ML VIAL IV SCH ×2 (15:38→23:28)
[2023-01-21] MEDS: HYDROcodone/APAP 5-325MG 1 EACH TAB PO PRN (20:43)
[2023-01-21] MEDS: amLODIPine 5 MG TAB PO SCH (20:43)
[2023-01-21 23:32] VITALS: RESP 16
[2023-01-22] MEDS: PANTOPRAZOLE 40 MG TABLET PO SCH (06:07)
[2023-01-22] MEDS: SUCRALFATE 1 GM TAB PO SCH ×2 (06:07→12:59)
[2023-01-22] MEDS: amLODIPine 5 MG TAB PO SCH (09:15)
[2023-01-22] MEDS: ASPIRIN 325 MG TAB PO SCH (09:15)
[2023-01-22] MEDS: methylPREDNISolone SOD SUCCI 40 MG/ML 1 ML VIAL IV SCH (09:15)
[2023-01-22 09:26] VITALS: BP 138/76; PULSE 76; TEMP 97.9
[2023-01-22 10:23] LABS: African American GFR (CKD) >90 (>60 ml/min/1.73 sqM); Anion Gap 9 mmol/L; Blood Urea Nitrogen 28 mg/dL (9-20); C Reactive Protein 5.3 mg/dL (<1.0); Calcium 8.8 mg/dL (8.4-10.2); Carbon Dioxide 27 mmol/L (22-30); Chloride 103 mmol/L (98-107); Glucose 149 mg/dL (74-99); Non-African American GFR(CKD) >90 (>60 ml/min/1.73 sqM); Potassium 4.6 mmol/L (3.5-5.1); Sodium 139 mmol/L (137-145)
[2023-01-22 10:47] LABS: Basophils % (A) 0 %; Eosinophils % (A) 0 %; HCT 37.6 % (39.0-53.0); HGB 12.2 gm/dL (13.0-17.5); Hypochromasia Slight; Lymphocytes % (A) 7 %; MCH 29.5 pg (25.0-35.0); MCHC 32.4 g/dL (31.0-37.0); MCV 90.9 fL (80.0-100.0); Mean Platelet Volume 7.3; Monocytes # (A) 0.8 k/uL (0-1.0); Monocytes % (A) 6 %; Neutrophils # (A) 12.7 k/uL (1.3-7.7); Neutrophils % (A) 87 %; Platelet Count 513 k/uL (150-450); RBC 4.14 m/uL (4.30-5.90); RDW 15.9 % (11.5-15.5); WBC 14.6 k/uL (3.8-10.6)
[2023-01-22] MEDS ORDERED: COLCHICINE 0.6 MG EACH PO SCH (11:30)
[2023-01-22 13:00] LABS: Erythrocyte Sedimentation Rate 91 mm/hr (0-15)
--- NOTE | 2023-01-22 14:55 | P.PN ---
Subjective Patient is seen in follow for acute kidney injury. GFR back to baseline. Oral intake is good. No vomiting or diarrhea. No active complaints. Vital signs are stable. General: The patient appeared well nourished and normally developed. HEENT: Head exam is unremarkable. LUNGS: No audible rhonchi or wheezes. HEART: Rate and Rhythm are regular. ABDOMEN: Nontender. EXTREMITITES: No edema. Objective - Vital Signs Vital signs: Vital Signs Temp 97.9 F 01/22/23 09:10 Pulse 76 01/22/23 09:10 Resp 16 01/22/23 09:10 BP 138/76 01/22/23 09:10 Pulse Ox 94 L 01/22/23 09:10 FiO2 Intake & Output 01/21/23 01/22/23 01/22/23 18:59 06:59 18:59 Intake Total 1560 236 Output Total 600 Balance 960 236 Intake: Oral 1560 236 Output: Urine 600 Other: Voiding Method Urinal Urinal Urinal - Labs CBC & Chem 7: 01/22/23 08:31 01/22/23 08:53 Labs: Abnormal Lab Results - Last 24 Hours (Table) 01/21/23 01/22/23 01/22/23 Range/Units 14:16 08:31 08:53 WBC 14.6 H (3.8-10.6) k/uL RBC 4.14 L (4.30-5.90) m/uL Hgb 12.2 L (13.0-17.5) gm/dL Hct 37.6 L (39.0-53.0) % RDW 15.9 H (11.5-15.5) % Plt Count 513 H (150-450) k/uL Neutrophils # 12.7 H (1.3-7.7) k/uL ESR 91 H (0-15) mm/hr BUN 28 H (9-20) mg/dL Glucose 149 H (74-99) mg/dL C-Reactive Protein 5.3 H (<1.0) mg/dL Urine Protein Trace H (Negative) Urine Glucose (UA) 4+ H (Negative) Assessment and Plan Plan: Assessment: 1. Acute kidney injury mostly prerenal secondary to NSAIDs and further wasn't with the use of diuretics. Creatinine 2.82 on admission and is 0.86 today. No evidence of hydronephrosis noted on kidney ultrasound. UA with 1+ protein and trace blood. Repeat UA with trace protein. MARGARET negative. 2. Benign hypertension. Stable. 3. Hyponatremia, hypovolemic further worsened with the use of thiazide diuretic. Improved. Plan: Stable for discharge from nephrology standpoint. Follow up outpatient 1 week post discharge. Continue to hold diuretics.
--- NOTE | 2023-01-22 16:07 | P.PN ---
Subjective Progress Note Date: 01/22/23 I am seeing this patient in consultation today 01/20/2023 in the emergency room for left-sided chest pain that seems to be pleuritic in nature. It is a 62-year-old white male with past medical history significant for hypertension and hyperlipidemia. Patient also states that he was recently diagnosed with Polymyalgia rheumatica by his primary care provider, Dr. Conner, about 6 months ago. Patient denies any pulmonary disease and is a never smoker. The patient has been experiencing intermittent left lateral chest pain. He's had an episode back in June and on . Patient states that this most recent episode started approximately 6 days ago. The chest pain is described as severe, sharp, "like being stabbed by a knife". He states that it occurs mostly on inspiration. The pain comes and goes, it is not currently bothering him. He was treated on outpatient basis with a prednisone burst taper, which initially helped, but the pain has returned as he was tapering off the steroids. Dr. Adames directed him to the ER yesterday morning. He denies any URIs, trauma. Denies any shortness of breath, cough, hemoptysis, fever. Patient is currently sitting up in bed, on room air, in no acute distress. The pain is not reproducible with manual manipulation of the area. Chest CTA was negative for pulmonary embolism, pneumothorax, and aortic dissection. There was some minimal bibasilar atelectasis. No acute cardiopulmonary process was identified. ACS has also been ruled out. Troponins less than 0.012. ECG on arrival showed normal sinus rhythm with frequent unifocal PVCs. No acute ischemic changes. CBC on arrival showed a WBC count of 13.9, hemoglobin 12, hematocrit 37, platelets 449. BMP on arrival showed a sodium 132, potassium 4.6, chloride 97, serum bicarbonate 22, BUN 38, creatinine 2.82, glucose 165. Patient does have a component of acute kidney injury. Denies any dysuria, frequency, urgency. Urinalysis was not particularly concerning for UTI. There was trace blood and 1+ protein. Renal ultrasound did not show any hydronephrosis or obstructive uropathy. No CVA tenderness. Patient states that he's been taking ibuprofen daily. Normal saline is infusing at 75 mL per hour. Patient is hemodynamically stable. On today's evaluation of 01/21/2023, the patient reports improvement in his back and chest pain. 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 He is currently on IV Solu-Medrol. Noted the patient was taken high-dose of prednisone of 20 mg on an outpatient basis. He is also on [place] for pain control which is using on an as-needed basis. No other significant events otherwise. He remains on room air oxygen. As stated, he has typical features of sleep breathing disorder/obstructive sleep apnea. The sodium is at 139, BUN is at 26 with a creatinine of 0.8, he is not taking any form of nonsteroidal anti-limited medications the patient's creatinine is normalized. On today's evaluation of a 01/22 2023, the patient is doing much better. No active pain. His sedimentation rate is dropping as the patient is currently on IV Solu-Medrol. The patient is ambulating. The blood work from today shows a sed rate of 91. The ribs, that 14.6 with a hemoglobin 12.2. BUN is 28 and a creatinine of 0.8 and the patient is acute kidney failure has essentially recovered. No other significant events otherwise for now. His calm and comfortable and hemodynamically stable. He is on room air oxygen. Objective - Vital Signs Vital signs: Vital Signs Temp 97.9 F 01/22/23 09:10 Pulse 76 01/22/23 09:10 Resp 16 01/22/23 09:10 BP 138/76 01/22/23 09:10 Pulse Ox 94 L 01/22/23 09:10 FiO2 Intake & Output 01/21/23 01/22/23 01/22/23 18:59 06:59 18:59 Intake Total 1560 118 Output Total 600 Balance 960 118 Intake: Oral 1560 118 Output: Urine 600 Other: Voiding Method Urinal Urinal - Exam GENERAL EXAM: Alert, 62-year-old obese male appearing stated age, comfortable in no apparent distress. HEAD: Normocephalic and atraumatic EYES: Normal reaction of pupils, equal size. NOSE: Clear with pink turbinates. THROAT: No erythema or exudates. NECK: No masses, no JVD. CHEST: No chest wall deformity. LUNGS: Equal air entry with no crackles, wheeze, rhonchi or dullness. On room air. No conversational dyspnea or accessory muscle use.. CVS: S1 and S2 normal with no audible murmur, regular rhythm. No extra heart sounds ABDOMEN: Obese abdomen, no hepatosplenomegaly, active bowel sounds, no guarding or rigidity. SPINE: No scoliosis or deformity SKIN: No rashes CENTRAL NERVOUS SYSTEM: No focal deficits, tone is normal in all 4 extremities. EXTREMITIES: There is no peripheral edema, clubbing, or cyanosis. Peripheral pulses are intact. - Labs CBC & Chem 7: 01/22/23 08:31 01/22/23 08:53 Labs: Abnormal Lab Results - Last 24 Hours (Table) 01/21/23 Range/Units 14:16 Urine Protein Trace H (Negative) Urine Glucose (UA) 4+ H (Negative) Assessment and Plan Assessment: Left lateral chest pain, likely pleurisy. Chest CTA showed no evidence of pulmo nary embolism, pneumothorax, or aortic dissection. There was minimal bibasilar atelectasis, without any acute cardiopulmonary processes. ACS ruled out. The patient is doing well. Pain is subsided and the patient has responded nicely to steroids Acute kidney injury, possibly related to NSAID use, recovered Leukocytosis, doubt infectious etiology, white cell cause of 14.6 Elevated d-dimer, pulmonary embolism ruled out Essential hypertension Hyperlipidemia Morbid obesity, with a BMI of 40.4 kg/m Plan: The patient is essentially muscular skeletal/inflammatory in nature The patient has a drop in the sedimentation rate down to 91 Continue steroids and switch this patient to oral prednisone 40 mg to be tapered slowly per Primary care physician Monitor sedimentation rate Continue [place] for pain control Renal function is improved CT angiogram of the chest that showed no evidence of any pulmonary embolism or dissection. The patient was sustained IV fluids. His renal function continues to improve. He'll be seen by cardiology. He has adequate pain control and is taking [place] for now. Is on room air oxygen with a pulse ox of 95%. Is hemodynamically stable. Previous echocardiogram from May 2022 showed a preserved LV function. No other complaints otherwise for now. The patient will be seen by various other consultants including nephrology regarding his acute kidney injury. He will need an outpatient follow-up regarding him having a sleep breathing disorder. The patient has a body mass index of 40 and he has typical features of obstructive sleep apnea. X-ray of the lumbosacral spine was also done that showed moderate to severe hypertrophic and degenerative changes of the spine and suspected foraminal encroachment at the level of L5-S1. He has bilateral sacroiliitis. We'll continue to follow Patient is cleared for discharge from the pulmonary standpoint
--- NOTE | 2023-01-23 10:03 | P.DS ---
Providers Date of admission: 01/19/23 13:27 Expected date of discharge: 01/22/23 Attending physician: Rigo Adames Consults: 01/19/23 13:27 Consult Physician Urgent Consulting Provider: Jacky Howell Consult Reason/Comments: Pleuritic chest pain Do you want consulting provider notified?: Yes Consult Physician Urgent Consulting Provider: Abebe Larson Consult Reason/Comments: Acute renal failure Do you want consulting provider notified?: Yes Primary care physician: Rigo Adames [place] Hospital Course: Final Diagnoses: Atypical chest pain, and the patient with recently diagnosed polymyalgia rheumatica,suspect muscloskeletal. Possible pleurisy as per pulmonary. Elevated sed rate., Uric acid 8.5, possibly acute gout Bibasilar atelectasis, minimal . Elevated d-dimer .Chest CTA reported negative for PE,pneumothorax, or aortic dissection Acute renal failure, secondary to NSAID use, resolved with IV fluid hydration, holding diuretics. GFR returned to baseline,>90. Hyponatremia, hypovolemic, improving Hypertension Hyperlipidemia Morbid obesity, BMI 40.4 Possible obstructive sleep apnea, outpatient sleep study Moderate to severe hypertrophic and degenerative changes of the spine and suspected foraminal encroachment at the level of L5-S1, bilateral sacroiliitis, reported per LS xray. Potential outpatient MRI if worsening. Hospital course:this 62 y/o male is well know to the practice.He was dx with Polymyalgia rheumatica in july and has been on prednisone since. HE came to the er for left sided chest wall/LUQ pain. CTA negative for PE.. W/u shows acute kdieny failure. He states due to pain he has been taking ibuprofen 800mg bid-tid, along with prednisoen 20mg daily. Up till 10 days ago he was drinking multiple beers daily. Home meds include HCTZ for htn control as well currently feeling a little better with pain meds. His pain is also lower back. Vitals are stable, BP normal. Labs show GFR now 54 from 23 CRP elevated, ESR 102 01/21/2023 maintained on [place], Flexeril, IV steroids. Reports back pain significantly improved . States it was initially worsened from spending the first night on the gurney in ER .Lumbar spine x-ray reported moderate to severe hypertrophic and degenerative changes of the spine and suspected foraminal encroachment at the level of L5-S1, bilateral sacroiliitis, reported per LS xray. Continues on Carafate and PPI .He reports no further left upper quadrant pain. Denies nausea vomiting or diarrhea. Reports he did have some "gout like pain "of his left bunion prior to admission-resolved, uric acid level pending. Denies chest pain, palpitations or shortness of breath. Maintaining O2 sats in the mid 90s on room air. Sodium and Renal function normalized with IV fluid hydration. Afebrile, elevated CRP and sed rate-both trending down ,recent WBC 13.9. Denies chest pain, palpitations or increasing shortness of breath. Significant clinical improvement. Inflammatory markers continued trending down, CRP 5.3, ESR 91. Sodium within normal limits. BUN 28, creatinine 0.86. Afebrile. Cleared by nephrology for discharge with recommendations of continuing to hold diuretics. Patient will be discharged home today in stable condition with guarded prognosis pending clearance from pulmonary. PCP recommending extended prednisone taper in addition to colchicine at discharge. 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 Alcohol abstinence reinforced. The impression and plan of care has been dictated as directed. : I performed a history and examination of this patient, discussed the same with the dictator. I agree with the dictator's note ,documented as a scribe. Any additional findings or plans will be noted. Patient Condition at Discharge: Stable Plan - Discharge Summary Discharge Rx Participant: No New Discharge Prescriptions: New Sucralfate [Carafate] 1 gm PO AC-TID #90 tab Pantoprazole [Protonix] 40 mg PO AC-BID #60 tab predniSONE 10 mg PO DIRECTED #126 tab Colchicine [Colcrys] 0.6 mg PO DAILY #30 tablet Continue amLODIPine [Norvasc] 5 mg PO DAILY predniSONE [Deltasone] 20 mg PO AC-BRKFST #0 methocarbamoL [Robaxin] 500 mg PO Q8H PRN PRN Reason: Muscle Spasm Pravastatin Sodium [Pravachol] 20 mg PO DAILY Discontinued Moexipril HCl [Univasc] 15 mg PO BID hydroCHLOROthiazide [Hydrodiuril] 25 mg PO DAILY Discharge Medication List amLODIPine [Norvasc] 5 mg PO DAILY 02/06/17 [History] Pravastatin Sodium [Pravachol] 20 mg PO DAILY 01/19/23 [History] methocarbamoL [Robaxin] 500 mg PO Q8H PRN 01/19/23 [History] Colchicine [Colcrys] 0.6 mg PO DAILY #30 tablet 01/22/23 [Rx] Pantoprazole [Protonix] 40 mg PO AC-BID #60 tab 01/22/23 [Rx] Sucralfate [Carafate] 1 gm PO AC-TID #90 tab 01/22/23 [Rx] predniSONE 10 mg PO DIRECTED #126 tab 01/22/23 [Rx] predniSONE [Deltasone] 20 mg PO AC-BRKFST #0 01/22/23 [Rx] Follow up Appointment(s)/Referral(s): Chano Willis MD [REFERRING] - 1 Week (Patient to schedule appointment, ens ure the office is aware this is an appointment following a hospital stay.) Rigo Adames Jr, DO [Primary Care Provider] - 3 Days (Patient to schedule appointment, ensure the office is aware this is an appointment following a hospital stay.) Abebe Larson DO [STAFF PHYSICIAN] - 1 Week Ambulatory/Diagnostic Orders: Basic Metabolic Panel [LAB.AMB] Time Frame: 3 Days, Location: None Selected Patient Instructions/Handouts: Chest Pain (DC), Acute Kidney Injury (DC) Activity/Diet/Wound Care/Special Instructions: RACHELLE inhibitor and hydrochlorothiazide on hold Discharge Disposition: HOME SELF-CARE
== END 2023-01-22 17:38 | disposition home or self-care (01) | DRG 683 ==
LOC: EC 10:30 → 3SCARD 13:27
PROVIDERS: ADMIT Family Medicine; ATTEND Family Medicine
DX: N17.8 Other acute kidney failure (principal); E87.1 Hypo-osmolality and hyponatremia; Z68.41 Body mass index [BMI] 40.0-44.9, adult; M35.3 Polymyalgia rheumatica; E66.01 Morbid (severe) obesity due to excess calories; M46.1 Sacroiliitis, not elsewhere classified; E78.2 Mixed hyperlipidemia; I10 Essential (primary) hypertension; M54.50 Low back pain, unspecified; I49.3 Ventricular premature depolarization; R09.1 Pleurisy; T39.395A Adverse effect of other nonsteroidal anti-inflammatory drugs [NSAID], initial encounter; E86.1 Hypovolemia; M10.9 Gout, unspecified; G47.33 Obstructive sleep apnea (adult) (pediatric); N14.0 Analgesic nephropathy; M51.37 Other intervertebral disc degeneration, lumbosacral region; Z96.60 Presence of unspecified orthopedic joint implant; Z79.2 Long term (current) use of antibiotics; Z91.040 Latex allergy status; Z79.899 Other long term (current) drug therapy
CPT/HCPCS: 36415; 71046; 71275; 72100; 76770; 80048; 80053; 80061; 81001; 81003; 83690; 83735; 84484; 84550; 85025; 85379; 85610; 85652; 85730; 86038; 86140; 93005; 96361; 96374; 96375; 99285

== ENCOUNTER → 2023-04-01 | Outpatient (CLI) | payer OTHER ==
[2023-04-01 15:32] LABS: Basophils # (A) 0.06 X 10*3/uL (0.00-0.10); Basophils % (A) 0.5 %; Eosinophils # (A) 0.05 X 10*3/uL (0.04-0.35); Eosinophils % (A) 0.4 %; HGB 12.3 d/dL (13.0-17.0); Lymphocytes # (A) 0.98 X 10*3/uL (0.90-5.00); MCH 28.3 pg (27.0-32.0); MCHC 30.8 d/dL (32.0-37.0); MCV 92.2 FL (80.0-97.0); Mean Platelet Volume 9.1 FL (9.5-12.2); Monocytes # (A) 0.55 X 10*3/uL (0.20-1.00); Monocytes % (A) 4.5 %; NRBC Per 100 WBC 0 X 10*3/uL (0.00-0.01); Neutrophils # (A) 10.43 X 10*3/uL (1.80-7.70); Neutrophils % (A) 85.5 %; Platelet Count 368 X 10*3/uL (140-440); RBC 4.34 X 10*6/uL (4.40-5.60); RDW 15.9 % (11.5-14.5); WBC 12.21 X 10*3/uL (4.50-10.00)
[2023-04-01 16:46] LABS: Erythrocyte Sedimentation Rate 52 mm/Hr (0-20)
[2023-04-01 20:45] LABS: ALT 35 U/L (10-49); AST 29 U/L (14-35); Blood Urea Nitrogen 15.6 mg/dL (9.0-27.0)
[2023-04-01 20:47] LABS: Hepatitis B Surface AB- Quant 3.5 mIU/mL; Hepatitis B Surface Antigen Nonreactive
== END | disposition home or self-care (01) ==
LOC: LABWHC1 10:27
PROVIDERS: ATTEND Internal Medicine Rheumatology
DX: M25.50 Pain in unspecified joint (principal); M06.4 Inflammatory polyarthropathy; Z79.01 Long term (current) use of anticoagulants
CPT/HCPCS: 36415; 82565; 84450; 84460; 84520; 85025; 85652; 86140; 86480; 86706; 87340

== ENCOUNTER 2024-05-16 20:31 | Emergency (ER) | payer OTHER ==
[2024-05-16 20:43] VITALS: RESP 16
[2024-05-16 21:42] LABS: ALT 24 U/L (4-49); AST 37 U/L (17-59); African American GFR (CKD) 79 (>60 ml/min/1.73 sqM); Albumin 3.5 g/dL (3.5-5.0); Alkaline Phosphatase 121 U/L (38-126); Anion Gap 7 mmol/L; Blood Urea Nitrogen 12 mg/dL (9-20); Carbon Dioxide 22 mmol/L (22-30); Chloride 104 mmol/L (98-107); Glucose 110 mg/dL (74-99); Non-African American GFR(CKD) 68 (>60 ml/min/1.73 sqM); Potassium 3.4 mmol/L (3.5-5.1); Sodium 133 mmol/L (137-145); Total Bilirubin 0.8 mg/dL (0.2-1.3); Total Protein 6.1 g/dL (6.3-8.2)
[2024-05-16 21:45] LABS: Basophils % (A) 0 %; Eosinophils # (A) 0.5 k/uL (0-0.7); Eosinophils % (A) 5 %; HCT 33.1 % (39.0-53.0); HGB 10.5 gm/dL (13.0-17.5); Hypochromasia Moderate; Lymphocytes # (A) 0.6 k/uL (1.0-4.8); Lymphocytes % (A) 6 %; MCH 27.7 pg (25.0-35.0); MCHC 31.6 g/dL (31.0-37.0); Mean Platelet Volume 6.7; Monocytes # (A) 0.5 k/uL (0-1.0); Monocytes % (A) 5 %; Neutrophils # (A) 8.4 k/uL (1.3-7.7); Neutrophils % (A) 83 %; Platelet Count 381 k/uL (150-450); RBC 3.78 m/uL (4.30-5.90); RDW 14.2 % (11.5-15.5); WBC 10.1 k/uL (3.8-10.6)
--- NOTE | 2024-05-16 21:47 | ED ---
General Adult HPI - General Chief complaint: Fever Stated complaint: L Knee Infection Time Seen by Provider: 05/16/24 21:09 Source: patient Mode of arrival: wheelchair Limitations: no limitations - History of Present Illness Initial comments: Patient is a pleasant 63-year-old gentleman with polymyalgia rheumatica on methylprednisolone, left patellar fracture with resultant surgical intervention and postop infection requiring intraoperative irrigation (performed at [facility])and PICC line placement, presenting for fever. Patient states over the course of the weekend he has felt fever and chills, today measured a temperature of 100 degrees at home. He took 3 tablets of 325 mg Tylenol at 6 PM this evening and called his home health nurse who recommended he come to the emergency department for further evaluation. Over the last 5 days he has had a mild cough productive of clear sputum as well as headaches. Denies rhinorrhea, sore throat, changes in vision, neck pain, abdominal pain, nausea, vomiting, diarrhea, dysuria, urinary frequency, chest pain, shortness of breath or new rashes. He is currently receiving daptomycin IV once daily and rifampin 300 mg 3 times daily through his infectious disease doctor at [facility]. Has had the PICC line in for about 3 weeks as well. Has not missed any dosages of his medications. Denies sick contacts, recent travel surgeries or hospitalizations since prior PICC line placement. He has no history of blood clots and denies hemoptysis or shortness of breath. He is a non-smoker and has no history of CAD or heart failure. Denies redness swelling pain around his knee/postop site as well as at his PICC line site. - Related Data Home Medications Medication Instructions Recorded Confirmed amLODIPine [Norvasc] 5 mg PO DAILY 02/06/17 01/19/23 Pravastatin Sodium [Pravachol] 20 mg PO DAILY 01/19/23 01/19/23 methocarbamoL [Robaxin] 500 mg PO Q8H PRN 01/19/23 01/19/23 Previous Rx's Medication Instructions Recorded Colchicine [Colcrys] 0.6 mg PO DAILY #30 tablet 01/22/23 Pantoprazole [Protonix] 40 mg PO AC-BID #60 tab 01/22/23 Sucralfate [Carafate] 1 gm PO AC-TID #90 tab 01/22/23 predniSONE 10 mg PO DIRECTED #126 tab 01/22/23 predniSONE [Deltasone] 20 mg PO AC-BRKFST #0 01/22/23 Allergies Allergy/AdvReac Type Severity Reaction Status Date / Time latex Allergy Blisters Verified 05/16/24 20:43 Review of Systems ROS Statement: Those systems with pertinent positive or pertinent negative responses have been documented in the HPI. ROS Other: All systems not noted in ROS Statement are negative. Past Medical History Past Medical History: Hyperlipidemia, Hypertension Additional Past Medical History / Comment(s): Polymyalgia rheumatica diagnosed in jun 2022 History of Any Multi-Drug Resistant Organisms: None Reported Date of last positivie culture/infection: 04/22/24 MDRO Source:: Left leg staph infection Past Surgical History: Hernia Repair, Joint Replacement Additional Past Surgical History / Comment(s): testicular surgery Past Anesthesia/Blood Transfusion Reactions: No Reported Reaction Past Psychological History: No Psychological Hx Reported Smoking Status: Never smoker Past Alcohol Use History: Occasional Past Drug Use History: None Reported General Exam - General Exam Comments Initial Comments: PE: CONSTITUTIONAL: No apparent distress, well appearing, nontoxic SKIN: Warm, dry, no jaundice, sandpaper like erythematous rash encompassing both ankles, no bullae, vesicles, blistering, weeping or skin sloughing. Left knee visualized, well healing post surgical scars, no erythema or exudates, no hemato mas EYES: Pupils are equally round, extraocular movements intact without nystagmus, clear conjunctiva, non-icteric sclera HENT: Normocephalic, atraumatic, moist mucus membranes, oropharynx clear without exudates NECK: , Full range of motion, normal appearance PULMONARY: Scant crackles in lung bases bilaterally, no wheezes, rhonchi, or rales, normal excursion, no accessory muscle use and no stridor CARDIOVASCULAR: Regular rate, rhythm, normal S1 and S2. No appreciated murmurs, rubs or gallops. Strong radial pulses with intact distal perfusion. Mild 1+ pitting distal LE edemaat dorsal aspects of feet GASTROINTESTINAL: Soft, active bowel sounds throughout, non-tender, non- distended, no palpable masses, no rebound or guarding. No hepatosplenomegaly MUSCULOSKELETAL: With exception of rash and post surgical changes as noted above, extremities have no gross deformity, No calf swelling, left knee in knee immobilizer, nontender to palpation, no warmth, no joint effusion NEUROLOGIC:_a/o x 3, GCS 15, normal mentation and speech. Moves all extremities x 4 without motor or sensory deficit PSYCHIATRIC:_normal mood and affect, thought process is clear and linear Limitations: no limitations Course Vital Signs 05/16/24 05/16/24 20:38 22:22 Temperature 98.9 F 99 F Pulse Rate 116 H 102 H Respiratory 16 16 Rate Blood Pressure 109/74 159/79 O2 Sat by Pulse 95 95 Oximetry EKG Findings - EKG Comments: EKG Findings:: Sinus tachycardia, rate 113 bpm, PA interval 166 ms, QRS duration 95 ms, QT/QTc 320/37 ms, normal axis, no ST elevations or depressions, no arrhythmia, artifact is present throughout, Compared to EKG performed on 01/19/2023, there are multiple PVCs on the prior EKG, otherwise today there are no new ST elevations or depressions, no significant changes from prior Medical Decision Making - Medical Decision Making Was pt. sent in by a medical professional or institution (, PA, CONTACT CENTER ASSISTANT, urgent care, hospital, or assisted...) When possible be specific @ Pt sent in by home health nurse Did you speak to anyone other than the patient for history (EMS, parent, family, police, friend...)? What history was obtained from this source @ -Patient's assisted in providing history including medication dosages Did you review nursing and triage notes (agree or disagree)? Why? @ -I reviewed and agree with nursing and triage notes Were old charts reviewed (outside hosp., previous admission, EMS record, old EKG, old radiological studies, urgent care reports/EKG's, assisted records)? Report findings Medical records reviewed-last here in December 2022 when he was diagnosed with polymyalgia rheumatica. Differential Diagnosis (chest pain, altered mental status, abdominal pain women, abdominal pain men, vaginal bleeding, weakness, fever, dyspnea, syncope, headache, dizziness, GI bleed, back pain, seizure, CVA, palpatations, mental health, musculoskeletal)? Differential Fever: Pneumonia, viral URI, post op infection, endocarditis, myocarditis, pericarditis, otitis, sinusitis, UTI, pulmonary embolism, CVA this is not meant to be an all-inclusive list. EKG interpreted by me (3pts min.). @ -As above X-rays interpreted by me (1pt min.). @ -None done CT interpreted by me (1pt min.). @ No large or submassive PE, consolidation in the RUL, RLL, LUE U/S interpreted by me (1pt. min.). @ -None done What testing was considered but not performed or refused? (CT, X-rays, U/S, labs)? Why? @ -None What meds were considered but not given or refused? Why? @ -None Did you discuss the management of the patient with other professionals (professionals i.e. DrChris, PA, CONTACT CENTER ASSISTANT, lab, RT, psych nurse, social worker clinical, data communications software consultant, teacher, vessel traffic officer, correctional counselor/case manager)? Give summary @Yes case discussed with Dr. Valdez, ID, recs continuation of daptomycin 6 mg/kg and cefepime 2 G, blood culture from PICC line Was smoking cessation discussed for >3mins.? @ -No Was critical care preformed (if so, how long)? @ -No Were there social determinants of health that impacted care today? How? (Homelessness, low income, unemployed, alcoholism, drug addiction, transportation, low edu. Level, literacy, decrease access to med. care, skilled nursing, rehab)? @ -No Was there de-escalation of care discussed even if they declined (Discuss DNR or withdrawal of care, Hospice)? @ -No What co-morbidities impacted this encounter? (DM, HTN, Smoking, COPD, CAD, Cancer, CVA, ARF, Chemo, Hep., AIDS, mental health diagnosis, sleep apnea, morbid obesity)? @ obesity Was patient admitted / discharged? Hospital course, mention meds given and route, prescriptions, significant lab abnormalities, going to OR and other pertinent info. @ Transfer to [facility]- This is a pleasant 63-year-old gentleman presenting for low-grade fever at home, chills and cough for the last 2 days, has PICC line in place for the last 3 weeks due to postop intra-articular knee infection, with ongoing daptomycin and rifampin therapy. Patient initially seen and assessed in waiting room due to bed shortage throughout the emergency department. He was agreeable with providing history and triage area. He was able to be brought behind a curtain so that I could visualize his knees, the left knee where he previously had surgery is well-healing, there is no erythema, warmth or significant swelling around the knee, no tenderness to palpation, no discharge from the surgical scars. He does have an erythematous almost sandpaperlike rash around the ankles bilaterally without skin sloughing, slight crackles in the lung bases bilaterally. He has no focal deficits. Received Tylenol prior to arrival. I highly suspect viral infection versus pneumonia versus PICC line infection, blood cultures were drawn including 1 from PICC line, given patient is postop and low-grade fever with cough PEs also top consideration. A CT PE study will be obtained. Patient declines any denies any pain at this time. We will give I V fluids, obtain, and labs. Due to cough and crackles in lung bases and EKG, troponin and BNP will be obtained as well. I discussed patient's case with Dr. Valdez, of infectious disease who kindly recommends continuing patient on daptomycin and adding cefepime. Reviewed patient's CT scan, I do not see any evidence of large or submassive PE however there are right upper and right lower lobe infiltrates present. Discussed with Dr. Rodas, admitting physician covering for Dr. Molina this weekend and as patient's care, PICC line replaced and the surgery were performed under [facility] [place] would prefer patient be transferred there for continuuity of care. Updated pt, he is agreeable with POC. CT of the chest was noted to be suboptimal but no evidence for acute PE, multifocal groundglass opacities and organizing consolidation greatest in the upper lung suspicious for acute infectious process, and the left kidney and few lesions are at the liver but presumably benign. Updated pt to findings, including lesions on liver and kidney and importance of follow up, and need for transfer, including risk and benefits of transfer, pt agreeable, prefers to be be transferred via private vehicle. Case discussed with Dr. Arellano, ED physician at [facility], kindly except patient for transfer. Patient is stable for transfer via private vehicle. Patient and agreeable with plan of care. Undiagnosed new problem with uncertain prognosis? @ -No Drug Therapy requiring intensive monitoring for toxicity (Heparin, Nitro, Insulin, Cardizem)? @ -No Were any procedures done? @ -No Diagnosis/symptom? @Fever, Pneumonia Acute, or Chronic, or Acute on Chronic? @ Acute Uncomplicated (without systemic symptoms) or Complicated (systemic symptoms)? Complicated Side effects of treatment? @ -No Exacerbation, Progression, or Severe Exacerbation? @ -No Poses a threat to life or bodily function? How? (Chest pain, [place], [place], pneumonia, PE, COPD, DKA, ARF, appy, cholecystitis, CVA, Diverticulitis, Homicidal, Suicidal, threat to staff... and all critical care pts) @ -Yes, could progress to sepsis, septic shock and - Lab Data Result diagrams: 05/16/24 21:16 05/16/24 21:16 Lab Results 05/16/24 05/16/24 05/16/24 Range/Units 21:16 21:16 21:16 WBC 10.1 (3.8-10.6) k/uL RBC 3.78 L (4.30-5.90) m/uL Hgb 10.5 L (13.0-17.5) gm/dL Hct 33.1 L (39.0-53.0) % MCV 87.6 D (80.0-100.0) fL MCH 27.7 (25.0-35.0) pg MCHC 31.6 (31.0-37.0) g/dL RDW 14.2 (11.5-15.5) % Plt Count 381 (150-450) k/uL MPV 6.7 Neutrophils % 83 % Lymphocytes % 6 % Monocytes % 5 % Eosinophils % 5 % Basophils % 0 % Neutrophils # 8.4 H (1.3-7.7) k/uL Lymphocytes # 0.6 L (1.0-4.8) k/uL Monocytes # 0.5 (0-1.0) k/uL Eosinophils # 0.5 (0-0.7) k/uL Basophils # 0.0 (0-0.2) k/uL Hypochromasia Moderate Sodium 133 L (137-145) mmol/L Potassium 3.4 L (3.5-5.1) mmol/L Chloride 104 (98-107) mmol/L Carbon Dioxide 22 (22-30) mmol/L Anion Gap 7 mmol/L BUN 12 (9-20) mg/dL Creatinine 1.14 (0.66-1.25) mg/dL Est GFR (CKD-EPI)AfAm 79 (>60 ml/min/1.73 sqM) Est GFR (CKD-EPI)NonAf 68 (>60 ml/min/1.73 sqM) Glucose 110 H (74-99) mg/dL Plasma Lactic Acid Calos 1.1 (0.7-2.0) mmol/L Calcium 8.0 L (8.4-10.2) mg/dL Total Bilirubin 0.8 (0.2-1.3) mg/dL AST 37 (17-59) U/L ALT 24 (4-49) U/L Alkaline Phosphatase 121 (38-126) U/L Troponin I (0.000-0.034) ng/mL C-Reactive Protein (<1.0) mg/dL NT-Pro-B Natriuret Pep pg/mL Total Protein 6.1 L (6.3-8.2) g/dL Albumin 3.5 (3.5-5.0) g/dL Influenza Type A (PCR) (Not Detectd) Influenza Type B (PCR) (Not Detectd) RSV (PCR) (Not Detectd) SARS-CoV-2 (PCR) (Not Detectd) 05/16/24 05/16/24 05/16/24 Range/Units 21:16 21:16 21:22 WBC (3.8-10.6) k/uL RBC (4.30-5.90) m/uL Hgb (13.0-17.5) gm/dL Hct (39.0-53.0) % MCV (80.0-100.0) fL MCH (25.0-35.0) pg MCHC (31.0-37.0) g/dL RDW (11.5-15.5) % Plt Count (150-450) k/uL MPV Neutrophils % % Lymphocytes % % Monocytes % % Eosinophils % % Basophils % % Neutrophils # (1.3-7.7) k/uL Lymphocytes # (1.0-4.8) k/uL Monocytes # (0-1.0) k/uL Eosinophils # (0-0.7) k/uL Basophils # (0-0.2) k/uL Hypochromasia Sodium (137-145) mmol/L Potassium (3.5-5.1) mmol/L Chloride (98-107) mmol/L Carbon Dioxide (22-30) mmol/L Anion Gap mmol/L BUN (9-20) mg/dL Creatinine (0.66-1.25) mg/dL Est GFR (CKD-EPI)AfAm (>60 ml/min/1.73 sqM) Est GFR (CKD-EPI)NonAf (>60 ml/min/1.73 sqM) Glucose (74-99) mg/dL Plasma Lactic Acid Calos (0.7-2.0) mmol/L Calcium (8.4-10.2) mg/dL Total Bilirubin (0.2-1.3) mg/dL AST (17-59) U/L ALT (4-49) U/L Alkaline Phosphatase (38-126) U/L Troponin I 0.027 (0.000-0.034) ng/mL C-Reactive Protein 32.2 H (<1.0) mg/dL NT-Pro-B Natriuret Pep 320 pg/mL Total Protein (6.3-8.2) g/dL Albumin (3.5-5.0) g/dL Influenza Type A (PCR) Not Detected (Not Detectd) Influenza Type B (PCR) Not Detected (Not Detectd) RSV (PCR) Not Detected (Not Detectd) SARS-CoV-2 (PCR) Not Detected (Not Detectd) Disposition Clinical Impression: Community acquired pneumonia Disposition: OTHER INSTITUTION NOT DEFINED Condition: Good Referrals: Rigo Adames Jr, [Primary Care Provider] - 1-2 days - Out of Hospital Transfer - Req. Specs Out of Hospital Transfer - Requested Specifics: Other Emergency Center
[2024-05-16 21:54] LABS: MCV 87.6 fL (80.0-100.0)
[2024-05-16] MEDS: CEFEPIME 2 GM in SODIUM CHLORIDE 0.9% 100 ML IVPB SCH (22:04)
[2024-05-16] MEDS: SODIUM CHLORIDE 0.9% 1,000 ML IV STA (22:04)
[2024-05-16 22:11] LABS: C Reactive Protein 32.2 mg/dL (<1.0)
--- NOTE | 2024-05-16 22:11 | CT ---
EXAMINATION TYPE: CT chest angio for PE DATE OF EXAM: 05/16/2024 COMPARISON: Prior CT chest January 19, 2023 HISTORY: Pt. under care for staph infection of LLE - has PICC line in LUE. Pt. reports intermittent f yessica and chills x2 days. CT DLP: 1004 mGycm. Automated Exposure Control for Dose Reduction was Utilized. CONTRAST: CTA scan of the thorax is performed with IV Contrast, patient injected with 75 ML mL of Isovue 300, p ulmonary embolism protocol. MIP Images are created on CT scanner and reviewed. FINDINGS: LUNGS: There are new multifocal groundglass opacities organizing consolidations bilaterally greatest in the upper lungs most prominent involvement in the periphery of the right upper lobe. Trace inferio r right sided pleural effusion. No pneumothorax seen bilaterally. MEDIASTINUM: Less than ideal study or enhancement of the pulmonary arteries but no CT evidence for ac pamunkey pulmonary embolism. Enhancement of the aorta without aneurysm or dissection. No cardiomegaly or p ericardial effusion. Some prominent lymph nodes in the bilateral hilar region and mediastinum are not ed. Findings presumed reactive. OTHER: Left-sided PICC line terminates in right atrium. A few small subcentimeter low dense lesions t hroughout the liver too small to further characterize but presumably benign. Exophytic subcentimeter cyst upper pole of left kidney posteriorly is seen. There is extra convex scoliosis with multilevel s purring and bridging osteophytes in the thoracic spine IMPRESSION: 1. Suboptimal study but no CT evidence for acute pulmonary embolism. 2. Multifocal ground glass opacities and organizing consolidation is greatest in the upper lungs susp icious for acute infectious process. Correlate clinically. [facility], , 05/16/2024 10:09 PM
[2024-05-16] MEDS: POTASSIUM CHLORIDE ER 20 MEQ TAB.ER PO STA (22:20)
[2024-05-16 22:24] VITALS: BP 159/79; PULSE 102; TEMP 99
[2024-05-16] MEDS: ACETAMINOPHEN TAB 325 MG TAB PO STA (23:17)
== END 2024-05-16 23:33 | disposition other institution (70) ==
LOC: EC 20:31
DX: J18.9 Pneumonia, unspecified organism (principal); Z91.040 Latex allergy status
CPT/HCPCS: 36415; 93005; 83880; 80053; 83605; 84484; 85025; 86140; 87040; 87636; 71275; 99285; 96365; 96361; J0692; Q9967